=== PATIENT | male | born 1940 | race Caucasian/White ===

== ENCOUNTER 2019-03-17 06:42 | Observation (INO) ==
--- NOTE | 2019-03-16 14:33 | XRay Report ---
TWO VIEW CHEST CLINICAL HISTORY: Preoperative examination.. FINDINGS: PA and lateral chest radiographs are obtained. No prior studies are available for compariso n at the time of dictation. The cardiomediastinal silhouette is unremarkable. There is atherosclero tic calcification with uncoiling of the thoracic aorta. Emphysematous change is noted. No airspace co nsolidation or pleural effusion is identified. There is no pneumothorax. The skeletal structures are osteopenic. The bony thorax appears intact. IMPRESSION: Emphysematous change with no active disease in the chest. Electronically signed by: Daniel Sanford M.D. 03/16/2019 2:32 PM
[2019-03-16 14:46] LABS: Partial Thromboplastin Time 27.1 Seconds (21.0-31.0); Prothrombin Time 10.3 Seconds (9.0-12.0)
--- NOTE | 2019-03-16 14:55 | Anesthesiology Consultation ---
Date of Service March 16, 2019 Assessment & Plan (1) Encounter for pre-operative examination: Chart Review Chart Review: Acceptable Risk for Surgery and Patient NOT seen in Pre Admission Testing Consults Requested none History Surgery Operation Date: 03/17/19 08:20 Proposed Procedures p Transurethral Resection of Bladder Tumor, Possible Multiple Cup Biopseis of Bladder, Possible Mitomycin C - Felix Tomlinson MD Height/Weight Height: 5 ft 10.5 in Weight: 76.204 kg Allergies Allergy/AdvReac Type Severity Reaction Status Date / Time aspirin AdvReac Unknown History-Ulc Verified 03/16/19 14:48 ers Medications Home Medications Medication Instructions Recorded Confirmed Last Taken No Known Home Medications 03/15/19 03/16/19 Unknown Past Medical History Medical History Emphysema lung Hx of gastric ulcer Past Family History Family History Other Family history non-contributory Past Surgical History Surgical History No history of previous surgery Social History Smoking Status: Current every day smoker tobacco type: cigarettes Smoking cigarettes per day: 1/2ppd Do You Dip or Chew Tobacco: No Hx Alcohol Use: No Hx Substance Use: No substance use type: does not use Testing Laboratory Results PT 10.3 Seconds (9.0-12.0) 03/17/19 08:20 INR 1.0 (0.9-1.1) 03/17/19 08:20 APTT 27.1 Seconds (21.0-31.0) 03/17/19 08:20 Laboratory Tests 03/15/19 03/15/19 21:01 21:01 WBC 8.95 Hgb 14.1 Plt Count 220 Sodium 138 Potassium 3.5 Chloride 102 Carbon Dioxide 29 BUN 15 Creatinine 1.10 Glucose 95 Electrocardiogram Date: 03/16/19 Normal sinus rhythm, rate 84 bpm Right bundle branch block Abnormal ECG No previous ECGs available Chest X-Ray Date: 03/16/19 IMPRESSION: Emphysematous change with no active disease in the chest.
[2019-03-16 15:05] LABS: Prostate Specific Antigen 3.35 ng/ml (0-4)
[~2019-03-17 06:42] MED LIST: GENTAMICIN SULFATE 80 MG in DEXTROSE 5% 100 ML IV SCH; LR 15ML/HR IV SCH
[2019-03-17 07:27] LABS: Hematocrit (blood only) 39.6 % (42-52); Hemoglobin 12.9 g/dL (14.0-18.0)
[2019-03-17] MEDS ORDERED: PROPOFOL IV EMULSION 10 MG/ML 20 ML VIAL IV ONE (08:02)
[2019-03-17] MEDS ORDERED: NEOSTIGMINE METHYLSULFATE 5 MG/5 ML SYR ONE (08:02)
[2019-03-17] MEDS ORDERED: GLYCOPYRROLATE 0.2 MG/ML VIAL ONE (08:02)
[2019-03-17] MEDS ORDERED: ONDANSETRON INJ 2 MG/ML 2 ML VIAL ONE (08:02)
[2019-03-17] MEDS ORDERED: LIDOCAINE HCL 2% 2 ML VIAL/AMP(20MG/ML) INFIL ONE (08:02)
[2019-03-17] MEDS ORDERED: fentaNYL citrate 100 MCG/2 ML VIAL ONE ×3 (08:02→11:28)
[2019-03-17] MEDS ORDERED: ROCURONIUM BROMIDE 10 MG/ML 5 ML VIAL ONE ×5 (08:02→12:09)
--- NOTE | 2019-03-17 08:06 | History & Physical Bridge Note ---
Date of Service March 17, 2019 History and physical incorrectly says jaqui is to have a TURP . He is having a TURBT. History & Physical Bridge Note I have examined the patient, reviewed the History & Physical and in the interval since the performance of the History & Physical I have noted the following changes of clinical significance: no changes noted
[2019-03-17] MEDS ORDERED: ePHEDrine sulfate 50 MG/ML AMP IV PRN (08:46)
[2019-03-17] MEDS ORDERED: ONDANSETRON INJ 2 MG/ML 2 ML VIAL IV PRN ×2 (08:46→13:54)
[2019-03-17] MEDS ORDERED: ALBUTEROL 0.083% NEBU SOLN 3 ML VIAL INH PRN (08:46)
[2019-03-17] MEDS ORDERED: ATROPINE SULFATE 0.1 MG/ML 10ML SYR IV PRN (08:46)
[2019-03-17] MEDS ORDERED: fentaNYL citrate 100 MCG/2 ML VIAL IV PRN (08:46)
[2019-03-17] MEDS ORDERED: METHYLENE BLUE 0.5% 10 ML VIAL ONE (09:50)
[2019-03-17] MEDS ORDERED: SODIUM CHLORIDE 0.9% 250 ML IV PRN (11:18)
[2019-03-17 11:31] LABS: iSTAT Hemoglobin 12.2 g/dl (14.0-18.0); iSTAT Ionized Calcium 1.18 mmol/l (1.12-1.32); iSTAT Potassium 4.3 mEq/L (3.3-5.0)
[2019-03-17] MEDS ORDERED: LABETALOL HCL IV 5 MG/ML 20ML IV ONE ×2 (12:00→12:58)
[2019-03-17 12:57] LABS: Basophils # (auto) 0.02 K/uL (0-0.2); Basophils % (auto) 0.3 %; Eosinophils # (auto) 0.17 K/uL (0-0.5); Eosinophils % (auto) 2.8 %; Hematocrit (blood only) 38.8 % (42-52); Hemoglobin 12.4 g/dL (14.0-18.0); Immature Granulocytes # (auto) 0.01 K/uL (0.00-0.02); Immature Granulocytes % (auto) 0.2 %; Lymphocytes # (auto) 2.03 K/uL (1.2-3.4); Lymphocytes % (auto) 33.4 %; Mean Corpuscular Volume 87.2 fL (80-100); Mean Platelet Volume 10.2 fL (7.4-10.4); Monocytes # (auto) 0.49 K/uL (0.11-0.59); Monocytes % (auto) 8.1 %; Neutrophils # (auto) 3.36 K/uL (1.4-6.5); Neutrophils % (auto) 55.2 %; Platelet Count 163 K/uL (130-400); RDW Coefficient of Variation 14.4 % (11.5-14.5); RDW Standard Deviation 45.8 fL (36.4-46.3); Red Blood Count 4.45 M/uL (4.7-6.1); White Blood Count 6.08 K/uL (4.8-10.8)
[2019-03-17] MEDS: LABETALOL HCL IV 5 MG/ML 20ML IV PRN ×2 (12:59→13:15)
[2019-03-17 13:16] LABS: BUN Creatinine Ratio 10.7 (10-20); Calcium 7.9 mg/dl (8.5-10.1); Creatinine Clr Calc Pharmacy 55.3 ml/min; Est GFR (African American) 72.8; Est GFR (Non-African American) 62.8; Potassium 4.2 mmol/L (3.5-5.1)
--- NOTE | 2019-03-17 13:26 | XRay Report ---
XR chest 1V portable CLINICAL HISTORY: SOB in PACU, sp TURB dyspnea COMPARISON STUDY: 03/16/2019 FINDINGS: Lungs remain clear. Minimal stable cardiomegaly. Stable tortuosity thoracic aorta. IMPRESSION: No acute process. No change from the prior exam. The above report was generated using voice recognition software. It may contain grammatical, syntax or spelling errors. Electronically signed by: Brent Wood M.D. 03/17/2019 1:25 PM
--- NOTE | 2019-03-17 13:32 | Anesthesiology Progress Note ---
Date of Service March 17, 2019 Anesthesia Post Procedure Vital Signs Vital Signs: Temp Pulse Pulse Resp BP Pulse Ox 03/17/19 13:20 52 L 16 145/71 H 99 03/17/19 13:10 55 L 14 167/78 H 96 03/17/19 13:00 61 18 158/65 H 99 03/17/19 12:50 64 12 201/99 H 97 03/17/19 12:40 72 10 L 188/86 H 100 03/17/19 12:33 37.1 C 62 13 121/61 99 03/17/19 07:05 36.6 C 74 18 161/79 H 97 Transfer of Care Handoff Completed per policy Notes Mental Status: alert / awake / arousable and participated in evaluation Patient Amnestic to Procedure: Yes Nausea / Vomiting: adequately controlled Pain: adequately controlled Airway Patency, RR, SpO2: stable & adequate BP & HR: stable & adequate Hydration State: stable & adequate Anesthetic Complications: no major complications apparent and Pt Satisfied with anesthetic care Notes: Pt c/o "congestion" in PACU. Some crackles at lung bases. CXR ordered and reviewed. Unchanged from prior. Post op electrolytes reviewed and normal. Hgb appropriate. Ok to send to floor.
[2019-03-17] MEDS ORDERED: BELLADONNA/OPIUM SUPP 60 MG SUPP PR PRN (13:54)
[2019-03-17] MEDS ORDERED: OXYCODONE HCL IR 5 MG TAB (IMMEDIATE RELEASE) PO PRN ×2 (13:54)
[2019-03-17] MEDS ORDERED: MoRPHine SULFATE 10 MG/ML CARP/VIAL IV PRN (13:54)
[2019-03-17] MEDS ORDERED: PNEUMOCOCCAL ADMINISTRATION CHARGE ONE (15:00)
[2019-03-17] MEDS ORDERED: PNEUMOCOCCAL POLYSACCHARIDES 25 MCG/0.5 ML VIAL/SYR IM ONE (15:00)
[2019-03-17] MEDS: FAMOTIDINE 20 MG in SYRINGE 3 ML IV SCH (15:46)
[2019-03-17] MEDS: ACETAMINOPHEN 1,000 MG/100 ML VIAL IV SCH ×2 (15:51→22:24)
[2019-03-17] MEDS: SODIUM CHLORIDE 0.45 % 1,000 ML IV SCH (16:08)
[2019-03-17] MEDS: CIPROFLOXACIN 400 MG/200 ML BAG IV SCH (17:11)
[2019-03-17] MEDS: DOCUSATE SODIUM 100 MG CAP PO SCH (22:23)
--- NOTE | 2019-03-17 23:50 | Operative Report ---
DATE OF OPERATION: 03/17/2019 DATE OF PROCEDURE: 03/17/2019 PREOPERATIVE DIAGNOSIS: Large bladder tumor with gross hematuria. POSTOPERATIVE DIAGNOSIS: Large bladder tumor with gross hematuria. SURGEON: Felix Tomlinson MD RAZOR GRINDER: Carlo. PROCEDURE: TURBT of large bladder tumor with multiple smaller bladder tumors. ANESTHESIA: General. INDICATIONS: The patient is a 78-year-old male with a [id number] history of smoking who presented several days ago for gross hematuria, had a Betts catheter placed in the Emergency Room which was clotted off. Yesterday he called the office, I had him come in and irrigated his bladder. We did a CAT scan which showed a large bladder tumor and given his persistent hematuria, scheduled him for a TURBT. DESCRIPTION OF THE PROCEDURE: The patient was taken to the cystoscopy suite with Venodyne stockings. He was given preoperative antibiotics. He was placed in dorsal lithotomy position, prepped and draped in the usual sterile fashion. A 21-Prydeinig cystoscope with a resectoscope was passed per urethra and the bladder was irrigated multiple times, most of the clot seemed to be removed. A large tumor appeared to be in the center of the field emanating from the trigone with multiple smaller tumors initially seen, but not appreciated, ____ until later in the procedure. Initially, the resection of this large tumor was begun and after several hours, there was a significant amount of bleeding in the middle of the tumor which was difficult to control, eventually it was able to control. Dr. Matos came to assist. By this time, most of the tumor been resected and the bleeding had been relatively well controlled. The rest of the tumor was resected and several biopsies at the deep part of the tumor were resected. At this point, I was able to identify both ureteral orifices, had given methylene blue but did not see blue coming from either orifice, although it did not appear that the orifice had been affected by the resection. There were at least 15-20 smaller tumors that appeared superficial that were resected and cauterized. Three of them were at the bladder neck and there was a moderate amount of bleeding when these were resected from the bladder neck. At the end of the procedure, there was no evidence of any bleeding. There was one area in the middle of the larger tumor that was relatively deep. It did not appear to be perforated. Careful coagulation was achieved. A 22-Prydeinig Betts catheter 2-way was placed, again the urine was clear. The patient was transferred to the recovery room in stable condition. I attest to the content of the Intraoperative Record and any orders documented therein. Any exception s are noted below.
[2019-03-18] MEDS: FAMOTIDINE 20 MG in SYRINGE 3 ML IV SCH (03:04)
[2019-03-18] MEDS: CIPROFLOXACIN 400 MG/200 ML BAG IV SCH (03:04)
[2019-03-18] MEDS: SODIUM CHLORIDE 0.45 % 1,000 ML IV SCH (05:17)
[2019-03-18] MEDS: ACETAMINOPHEN 1,000 MG/100 ML VIAL IV SCH (05:20)
--- NOTE | 2019-03-18 07:34 | Anesthesiology Progress Note ---
Date of Service March 18, 2019 Anesthesia Post Procedure Vital Signs Vital Signs: Temp Pulse Pulse Resp BP Pulse Ox 03/18/19 03:20 37 C 78 18 111/64 95 03/17/19 22:52 36.9 C 63 18 108/53 L 95 03/17/19 20:01 94 03/17/19 19:10 37.2 C 73 18 107/56 L 95 03/17/19 16:54 37.0 C 69 16 100/48 L 100 03/17/19 15:49 36.9 C 66 16 158/68 H 99 03/17/19 14:56 36.5 C 61 16 150/58 H 98 03/17/19 14:19 59 L 16 154/72 H 96 03/17/19 13:55 36.5 C 55 L 17 158/71 H 97 03/17/19 13:40 36.4 C L 53 L 17 162/71 H 97 03/17/19 13:30 52 L 16 145/71 H 99 03/17/19 13:20 52 L 16 145/71 H 99 03/17/19 13:10 55 L 14 167/78 H 96 03/17/19 13:00 61 18 158/65 H 99 03/17/19 12:50 64 12 201/99 H 97 03/17/19 12:40 72 10 L 188/86 H 100 03/17/19 12:33 37.1 C 62 13 121/61 99 Notes Mental Status: alert / awake / arousable and participated in evaluation Patient Amnestic to Procedure: Yes Nausea / Vomiting: adequately controlled Pain: adequately controlled Airway Patency, RR, SpO2: stable & adequate BP & HR: stable & adequate Hydration State: stable & adequate Anesthetic Complications: no major complications apparent and Pt Satisfied with anesthetic care
[2019-03-18 08:14] LABS: Basophils # (auto) 0.04 K/uL (0-0.2); Basophils % (auto) 0.4 %; Eosinophils # (auto) 0.15 K/uL (0-0.5); Eosinophils % (auto) 1.7 %; Hematocrit (blood only) 37.9 % (42-52); Immature Granulocytes # (auto) 0.01 K/uL (0.00-0.02); Immature Granulocytes % (auto) 0.1 %; Lymphocytes # (auto) 1.55 K/uL (1.2-3.4); Lymphocytes % (auto) 17.1 %; Mean Corpuscular Hgb Conc 31.7 g/dL (32-36); Mean Corpuscular Volume 87.5 fL (80-100); Mean Platelet Volume 10.1 fL (7.4-10.4); Monocytes # (auto) 0.59 K/uL (0.11-0.59); Monocytes % (auto) 6.5 %; Neutrophils # (auto) 6.72 K/uL (1.4-6.5); Neutrophils % (auto) 74.2 %; Platelet Count 181 K/uL (130-400); RDW Coefficient of Variation 14.4 % (11.5-14.5); RDW Standard Deviation 46.1 fL (36.4-46.3); Red Blood Count 4.33 M/uL (4.7-6.1); White Blood Count 9.06 K/uL (4.8-10.8)
[2019-03-18 08:37] LABS: BUN Creatinine Ratio 10.9 (10-20); Calcium 8.3 mg/dl (8.5-10.1); Creatinine Clr Calc Pharmacy 49.9 ml/min; Est GFR (African American) 64.3; Est GFR (Non-African American) 55.5; Potassium 4.2 mmol/L (3.5-5.1)
[2019-03-18] MEDS: DOCUSATE SODIUM 100 MG CAP PO SCH (09:14)
--- NOTE | 2019-03-18 09:49 | Urology Progress Note ---
Date of Service March 18, 2019 Assessment & Plan (1) Bladder mass: Discharge the patient home with an indwelling Betts catheter. Patient will follow-up in 2 days Subjective 78-year-old male status post TURBT yesterday. Intra-Op patient bled a moderate amount but his hematocrit is 37.9 today. The urine is clear. The patient has no pain and is feeling ready to go home. Discussed with him the fact that he can have his catheter in until Saturday. If the bleeding becomes severe he needs to let us know. Physical Exam Physical Exam: Urine is clear in Betts patient appears alert without distress Results & Data Vital Signs (Past 12 Hours) Vital Signs Temp Pulse Pulse Resp BP Pulse Ox 03/18/19 07:49 36.8 C 63 17 150/70 H 98 03/18/19 03:20 37 C 78 18 111/64 95 03/17/19 22:52 36.9 C 63 18 108/53 L 95 Laboratory Results Hematocrit is 37.9 this point PG Care Time/CCT Total # of Minutes Spent Total Time Spent with Patient: Total time spent is greater than 50% in coordination of care (as documented) at patient's floor/unit and/or counseling patient:
--- NOTE | 2019-03-19 22:58 | Discharge Summary ---
HISTORY OF PRESENTATION AND HOSPITAL COURSE: The patient was admitted on 11/15/2018 with a large bladder tumor with gross hematuria and urinary retention. The patient had a TURBT, which was difficult, but did result in complete resection of his tumors, which he had multiple and one large predominant tumor. Postoperatively, his urine was clear. He had a Betts catheter in overnight and felt well the next day with relatively clear urine. He was discharged to home with an indwelling Betts catheter and instructions to follow up in 3 days for catheter removal.
--- NOTE | 2019-03-30 11:16 | Coding Query ---
A supporting diagnosis is required for the test/procedure performed on this patient in order for us to be reimbursed by the patient's insurance. Please provide a supporting diagnosis for the following test/procedure listed below next to the test name along with your signature. *If there is no additional diagnosis for this patient that would support the following test/procedure please document that below next to the test/procedure. Test(s)/Procedure(s) that require a supporting diagnosis: * FREE PSA (INCLUDES TOTAL PSA) DIAGNOSIS: Provider Signature: Date: Thank you Delphine Capone [employer] Information [employer] Once completed, please kindly fax back to [phone] For questions please call [phone] [facility]ITAL[facility]
== END 2019-03-18 11:40 | disposition home or self-care (01) ==
LOC: 3W 06:42 → ASU 06:42

== ENCOUNTER 2025-03-08 08:10 | Observation (INO) ==
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
[2025-03-08] MEDS ORDERED: DEXAMETHASONE SOD INJ 4 MG/ML VIAL ONE (08:13)
[2025-03-08] MEDS ORDERED: ONDANSETRON INJ 2 MG/ML 2 ML VIAL ONE (08:13)
[2025-03-08] MEDS ORDERED: ROCURONIUM BROMIDE 10 MG/ML 5 ML VIAL IV ONE ×2 (08:13→11:04)
[2025-03-08] MEDS ORDERED: PROPOFOL IV EMULSION 10 MG/ML 20 ML VIAL IV ONE (08:13)
[2025-03-08] MEDS ORDERED: LIDOCAINE 2% 2 ML VIAL/AMP(20MG/ML) INFIL ONE (08:13)
[2025-03-08] MEDS ORDERED: SUGAMMADEX SODIUM 200 MG/2 ML VIAL IV ONE (08:28)
--- NOTE | 2025-03-08 08:33 | History & Physical Bridge Note ---
Date of Service March 08, 2025 History & Physical Bridge Note I have examined the patient, reviewed the History & Physical and in the interval since the performance of the History & Physical I have noted the following changes of clinical significance: he had his bladder cancer surgery performed, his blood pressures became better controlled with his PCP while he awaited surgery today. Pt presents for robotic right inguinal hernia repair, possible open. The details of the procedure were explained in the office as noted in the office note and the consent is on the chart.
[2025-03-08 08:40] LABS: Anion Gap 7.0 (3-11); Blood Urea Nitrogen 24.0 mg/dl (6-23); Calcium 9.0 mg/dl (8.6-10.3); Carbon Dioxide 27.0 mmol/L (21-32); Chloride 108.0 mmol/L (98-107); Creatinine Clr Calc Pharmacy 42.5 ml/min; Glucose 96.0 mg/dl (70-99(Fasting)); Potassium 3.9 mmol/L (3.5-5.1); Sodium 142.0 mmol/L (136-145)
[2025-03-08] MEDS ORDERED: ATROPINE SULFATE 0.1 MG/ML 10ML SYR IV PRN (08:57)
[2025-03-08] MEDS ORDERED: PROMETHAZINE HCL 6.25 MG in SODIUM CHLORIDE 0.9% 50 ML IV PRN (08:57)
[2025-03-08] MEDS ORDERED: HYDROmorphone INJ 2 MG/ML SYR/VIAL IV PRN (08:57)
[2025-03-08] MEDS: LACTATED RINGER'S 1,000 ML IV SCH (09:06)
[2025-03-08] MEDS ORDERED: PHENYLEPHRINE 100MCG/ML 5ML SYR ONE (11:26)
[2025-03-08] MEDS: BUPIVACAINE 0.5 % 5 MG/1 ML MPF 30ML VIAL ONE (12:20)
--- NOTE | 2025-03-08 12:35 | Operative Report ---
PG Post Operative Report Pre & Post Diagnosis Operation Date: 03/08/25 09:50 Pre-Op Diagnosis: Bilateral Inguinal Hernia Post-Op Diagnosis: Bilateral Inguinal Hernia I identified the patient and participated in the time-out.: Yes Procedure Operation Date: 03/08/25 09:50 Actual Procedures p Robotic Assisted Laparoscopic Bilateral Inguinal Hernia Repair with M esh(Bilateral) - Timothy Willson DO Surgeon Timothy Willson DO Chemical Dependency Attendant NOEL Villalobos Estimated Blood Loss 10 Findings See Below Bilateral inguinal hernias Right direct, indirect and obturator hernias Left direct, indirect inguinal hernias Specimens None Anesthesia Type General Complications No immediate complications Indications Patient with symptomatic bilateral inguinal hernias. Right much more symptomatic than the left. Description of Procedure The patient was brought back to the operating room and placed on the operating room table in supine position. He was connected to cardiac and oxygen monitoring, supplemental O2 was provided and SCDs were applied to bilateral lower extremities. The patient was administered general anesthesia and a secure airway was established. The abdomen was prepped and draped in typical sterile fashion and a timeout was conducted. Local anesthetic was used anesthetize the skin and subcutaneous tissues prior to making all incisions and all incisions were made with 11 blade. Intra-abdominal access was attempted at the right upper quadrant as the patient does have a palpable aortic aneurysm being followed by his vascular surgeon and care was taken to avoid this during intra-abdominal access. Right upper quadrant intra- abdominal access was unsuccessful so access was gained at the supraumbilical fold to the patient's right of his midline. This was confirmed with saline drop test. CO2 insufflation was initiated and pneumoperitoneum was established local pressure 15 mmHg. Using direct visualization, an 8 mm robotic trocar was inserted with a 5 mm laparoscope and an Optiview port. Under direct visualization, 2 additional 8 mm trocars were inserted at the right upper and left upper quadrants. The OR table was positioned in Trendelenburg and the robot was deployed, docked and instruments were loaded in target. Immediately obvious was a large direct and the slightly smaller indirect inguinal hernia. At the console, the peritoneum was taken down initially just over the right groin creating the preperitoneal space extending laterally to the ASIS. A large direct hernia was reduced of the lipoma. As the peritoneum was peeled away from the myopectineal orifice, an obturator hernia and an indirect hernia were both reduced. The peritoneum was pulled away from this area to a great extent. The left side was then addressed in the opening into the peritoneum was continued to the the left ASIS. The preperitoneal space here was also fully developed and an indirect and direct hernia was reduced on the left. There was a small tear in the lower edge of the peritoneum this was closed using a [id number] 3-0 Vicryl suture on the preperitoneal space side. 10 x 15 ProGrip mesh was used at both the right groin and the left. Each mesh was sutured in place at the top edge medially to secure above the direct hernia spaces. Each mesh was splayed out over the entire myopectineal orifice extending to below the Helio's ligament medially and laterally to the ASIS bilaterally. The peritoneum was reduced beyond the lower edge of the mesh. The peritoneum was then closed over both areas using two 9 inch V lock sutures. The sutures and needles were all removed. The instruments and trocars were removed. The OR was returned to the neutral position. The skin incisions were approximated using 4-0 Monocryl suture. The abdomen was wiped clean with a saline soaked lap pad and dried. Dermabond was used to further seal the incisions. The patient tolerated the procedure well. He was awakened from anesthesia, the secure airway was removed and he was transferred recovery in stable condition. I attest to the content of the Intraoperative Record and any orders documented therein. Any exceptions are noted below.
[2025-03-08] MEDS ORDERED: MoRPHine SULFATE 2 MG/ML CARP IV PRN ×2 (13:38)
[2025-03-08] MEDS ORDERED: ACETAMINOPHEN 325 MG TAB PO PRN (13:38)
[2025-03-08] MEDS ORDERED: ONDANSETRON INJ 2 MG/ML 2 ML VIAL IV PRN (13:38)
--- NOTE | 2025-03-08 14:25 | Anesthesiology Progress Note ---
Date of Service March 08, 2025 Anesthesia Post Procedure Vital Signs Vital Signs: Temp Pulse Pulse Resp BP Pulse Ox O2 Del Method 03/08/25 14:05 36.3 C L 90 18 159/74 H 97 Room Air 03/08/25 13:41 36.4 C L 84 18 130/66 96 Room Air 03/08/25 13:15 36.5 C 88 20 137/66 94 Room Air 03/08/25 13:05 92 H 14 128/65 93 Room Air 03/08/25 12:55 92 H 16 146/55 H 95 Room Air 03/08/25 12:45 91 H 16 141/65 H 96 Oxymask 03/08/25 12:36 36.5 C 100 H 12 141/63 H 99 Room Air 03/08/25 08:36 36.7 C 79 18 155/86 H 94 Room Air O2 Flow Rate 03/08/25 14:05 03/08/25 13:41 03/08/25 13:15 03/08/25 13:05 03/08/25 12:55 03/08/25 12:45 4 03/08/25 12:36 03/08/25 08:36 Pain Intensity Bilateral Leg: Pain Intensity: 2 Abdomen: Pain Intensity: 4 Transfer of Care Handoff Completed per policy Notes Mental Status: alert / awake / arousable and participated in evaluation Nausea / Vomiting: adequately controlled Pain: adequately controlled Airway Patency, RR, SpO2: stable & adequate BP & HR: stable & adequate Hydration State: stable & adequate Anesthetic Complications: no major complications apparent and Pt Satisfied with anesthetic care
[2025-03-08 23:40] VITALS: TEMP 97.9
[2025-03-09 07:01] VITALS: BP 114/59; PULSE 75; RESP 16; O2SAT 96
[2025-03-09] MEDS: LOSARTAN POTASSIUM 50 MG TAB PO SCH (07:21)
--- NOTE | 2025-03-09 09:41 | Surgery Progress Note ---
<Statement entered by Timothy Willson, DO - 03/09/25 14:19> This case has been discussed with the surgical PA Date of Service March 09, 2025 Assessment & Plan (1) Inguinal hernia bilateral, non-recurrent: Plan: POD#1 robotic bilateral inguinal hernia repair with dr. willson doing well post op. pain controlled, diet tolerated, he is voiding and ambulating incisions c/d/i will plan on discharge to home today, d/c instructions reviewed, f/u in the office with dr. willson in 10-14 days Admission and Anticipated Discharge Date Admission Date: March 08, 2025 Subjective Patient feeling okay. Pain tolerable. Eating/drinking well without nausea/vomiting. Voiding and ambulating. Physical Exam Physical Exam: awake/alert, no distress Gastrointestinal (Abdomen): Inspection/Auscultation: + abdominal surgical incision (c/d/i with dermabond ) Percussion/Palpation: + abdomen tender (expected trini incisional discomfort to palpation ) and abdomen soft Results & Data Vital Signs (Past 12 Hours) Vital Signs Temp Pulse Resp BP BP Pulse Ox O2 Del Method 03/09/25 07:01 97.9 F 75 16 114/59 L 96 Room Air 03/09/25 03:14 97.9 F 71 18 127/62 97 Room Air 03/08/25 23:38 97.9 F 74 18 126/57 L 97 Room Air PG Care Time/CCT Total # of Minutes Spent Total Time Spent with Patient: Total time spent is greater than 50% in coordination of care (as documented) at patient's floor/unit and/or counseling patient: Coding Level of Care Code 80020 Post Operative Follow-Up Diagnoses Non-recurrent bilateral inguinal hernia without obstruction or gangrene K40.20 Obstruction and gangrene presence: without obstruction or gangrene Recurrence: non-recurrent (1) Inguinal hernia bilateral, non-recurrent Obstruction and gangrene presence: without obstruction or gangrene Recurrence: non-recurrent Qualified Code(s): K40.20 - Bilateral inguinal hernia, without obstruction or gangrene, not specified as recurrent
== END 2025-03-09 10:45 | disposition home or self-care (01) ==
LOC: 3W 08:10 → ASU 08:10

== ENCOUNTER 2025-05-23 17:59 | Inpatient (IN) ==
[2025-05-23 18:32] LABS: Hematocrit (blood only) 35.2 % (42.0-52.0); Hemoglobin 11.3 g/dl (14.0-18.0); Immature Granulocytes # (auto) 0.04 K/uL (0.01-0.20); Immature Granulocytes % (auto) 0.5 %; Mean Corpuscular Hemoglobin 28.0 pg (25.0-34.0); Mean Corpuscular Volume 87.1 fL (80.0-100.0); Platelet Count 241 K/uL (130-400); RDW Standard Deviation 41.8 fL (36.4-46.3); Red Blood Count 4.04 M/uL (4.70-6.10); White Blood Count 8.19 K/ul (4.8-10.8)
--- NOTE | 2025-05-23 18:32 | XRay Report ---
Chest radiograph, one view History: Chest pain Comparison: None Findings: Single AP view of the chest performed. No focal consolidation or pleural effusion. No pneumothorax. The cardiomediastinal silhouette is within normal limits. Normal pulmonary vascularity. No evidence for lymphadenopathy. No visualized bony or soft tissue abnormality. Impression: Normal chest radiograph Electronically signed by Bharathi Rivera 05-23-2025 6:31 PM
[2025-05-23 18:48] LABS: Anion Gap 9.0 (3-11); Blood Urea Nitrogen 22.0 mg/dl (6-23); Calcium 8.6 mg/dl (8.6-10.3); Carbon Dioxide 24.0 mmol/L (21-32); Chloride 106.0 mmol/L (98-107); Creatinine Clr Calc Pharmacy 39.0 ml/min; Glucose 106.0 mg/dl (70-99(Fasting)); Lipase 14.0 U/L (11-82); Potassium 3.5 mmol/L (3.5-5.1); Sodium 139.0 mmol/L (136-145)
[2025-05-23 19:05] LABS: INR 1.0 (0.9-1.1); Partial Thromboplastin Time 26 Seconds (21-31); Prothrombin Time 10.6 Seconds (9.0-12.0)
[2025-05-23] MEDS: ASPIRIN 81 MG CHEW PO STA (19:36)
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
--- NOTE | 2025-05-23 21:09 | Emergency Department Note ---
History of Present Illness General Chief Complaint: Chest Pain Stated Complaint: CHEST PAIN Time Seen by Provider: 05/23/25 18:06 History of Present Illness Provider Complaint: chest pain Onset (ago): day(s) 1 Duration: intermittent Onset: during rest Pain Location: left chest Pain Radiation: none Severity: moderate Maximum Pain Intensity: 5 Current Pain Intensity: 5 Quality: + tightness and + aching Relieved By: + nothing Exacerbated By: + nothing Context: no recent illness, no recent surgery, no recent immobilization, no recent travel, no trauma/injury or no new medications Associated symptoms: no nausea, no dyspnea, no syncope, no palpitations, no fever, no cough or no leg swelling Patient scheduled to have stress test tomorrow through the MD. Home Medications Medication Instructions Recorded Confirmed Type amlodipine 10 mg tablet 5 mg PO QAM 01/14/25 05/23/25 History losartan 50 mg tablet 50 mg PO QAM 01/14/25 05/23/25 History lidocaine 5 % topical patch 1 patch topical DAILY #30 ea 04/05/25 05/23/25 Rx (Lidoderm) peg 3350-electrolytes 236 240 ml PO Q10M #4,000 mL 04/15/25 Rx gram-22.74 gram-6.74 gram-5.86 gram solution (GaviLyte-G) metoprolol succinate 25 mg 25 mg PO DAILY 05/23/25 05/23/25 History tablet,extended release 24 hr omeprazole 20 mg capsule,delayed 20 mg PO DAILY 05/23/25 05/23/25 History release Allergies Allergy/AdvReac Type Severity Reaction Status Date / Time Sulfa (Sulfonamide Allergy rash Verified 04/14/25 13:34 Antibiotics) sulfamethoxazole Allergy Rash Verified 04/14/25 13:34 [From Bactrim] trimethoprim [From Bactrim] Allergy Rash Verified 04/14/25 13:34 aspirin AdvReac Mild History-Ulc Verified 04/14/25 13:34 ers diphenhydramine AdvReac bleeding Verified 04/14/25 13:34 [From Benadryl] with urination Past Med/Surg History Problem List (Updated 05/23/25 @ 21:13 by Phil Wolfe MD) Chest pain (Acute) Early satiety Abdominal pain BPH (benign prostatic hyperplasia) Inguinal hernia bilateral, non-recurrent Malignant neoplasm of bladder HTN (hypertension) Bilateral knee pain Dawson's cyst of knee Tobacco use Overweight (BMI 25.0-29.9) Hx of gastric ulcer Emphysema lung Medical History Encounter for pre-operative examination BPH (benign prostatic hyperplasia) Hx of bladder cancer (1998) AAA (abdominal aortic aneurysm) Torn ligament PAD (peripheral artery disease) Hx of gastric ulcer HTN (hypertension) Emphysema lung Inguinal hernia bilateral, non-recurrent Surgical History H/O bilateral inguinal hernia repair (03/08/25) History of transurethral resection of bladder tumor (TURBT) (2024) History of surgery on arm Hx of LASIK Family History Sister Family history of diabetes mellitus (DM) Hypertension Breast cancer Diabetes Father Cancer Brother Myocardial infarction Gall bladder disease Other Family history of cancer in father Denies family history of Ovarian cancer Prostate cancer Colorectal cancer Social History Smoking Status: Former smoker Tobacco Type: Cigarettes Age Started Using Tobacco: 19; packs per day: 1; Cigarettes Per Day: 2 1/5 mos- advised; Second Hand Exposure: No; Do You Dip or Chew Tobacco: No; Hx Alcohol Use: No Hx Substance Use: No Preferred Language: Amharic Communication Ability: Effective Visual Impairment: No Limitations Hearing Ability: Normal Retail And Promotions Coordinator Required: No Beliefs That Will Affect Care: None marital status: Current Living Situation: Alone current occupational status: retired How many Children do You have: 3 Feels Safe at Home: Yes during the past year weight has: remained stable Dental Care, Regularly: No Physical Activity Frequency: Other Physical Activity Frequency Comment: Limited by physical condition Seatbelt Use: always Sunscreen Use: Yes (sometimes) Assistive Devices: Cane Physical Exam Vital Signs Vital Signs - 24 hr 05/23/25 18:01 05/23/25 18:20 05/23/25 18:21 Temperature 36.6 C Temperature Source Temporal Artery Scan Pulse Rate 83 67 Pulse Rate [Left Apical] 70 Respiratory Rate 20 17 Respiratory Effort / Characteristics Non-Labored Spontaneous Respiratory Depth Normal Respiratory Pattern Regular Blood Pressure 108/69 Blood Pressure [Right Arm] 123/90 Blood Pressure Mean 82 Blood Pressure Mean [Right Arm] 101 Blood Pressure Position Sitting Pulse Oximetry 99 95 Oxygen Delivery Method Room Air Room Air Sepsis Recent Fever Within 48 Hours No Sepsis New/Unexplained Change in Mental Status No Sepsis Action Taken by Nursing No Action Required 05/23/25 19:00 05/23/25 19:30 05/23/25 20:02 Temperature Temperature Source Pulse Rate 70 70 64 Pulse Rate [Left Apical] Respiratory Rate 19 17 19 Respiratory Effort / Characteristics Respiratory Depth Respiratory Pattern Blood Pressure 109/51 L 119/71 142/66 H Blood Pressure [Right Arm] Blood Pressure Mean 77 96 125 Blood Pressure Mean [Right Arm] Blood Pressure Position Pulse Oximetry 98 100 100 Oxygen Delivery Method Room Air Room Air Room Air Sepsis Recent Fever Within 48 Hours Sepsis New/Unexplained Change in Mental Status Sepsis Action Taken by Nursing Physical Exam GENERAL: oriented to person, place, and time. appears well-developed and well- nourished. HENT: Exam performed. - Head: Normocephalic and atraumatic. EYES: Conjunctivae and EOM are normal. Right eye exhibits no discharge. Left eye exhibits no discharge. No scleral icterus. NECK: Normal range of motion. Neck supple. No JVD present. CV: Normal rate, regular rhythm, normal heart sounds and intact distal pulses. There is no peripheral edema. Palpable radial pulses bue. PULM/CHEST: Effort normal and breath sounds normal. No respiratory distress. No stridor. no wheezes. no rales. ABD: The abdomen is soft. There is no tenderness. NEURO: Motor and sensation grossly intact. SKIN: Skin is warm and dry. He is not diaphoretic. PSYCH: normal mood and affect. Behavior is normal. Judgment and thought content normal. Course Course 1805: The patient was evaluated in room C5. A complete history and physical exam was performed Cardiac monitoring: An order was placed for continuous cardiac monitoring. The monitor shows a rate of 70 with sinus rhythm interpreted by me 1930: Vital signs stable. Labs and imaging are unremarkable. Patient will be admitted for chest pain rule out ACS. Administered Medications Discontinued Medications Aspirin (Aspirin 81 Mg Chew) 324 mg PO NOW STA Stop: 05/23/25 19:31 Last Admin: 05/23/25 19:36 Dose: 324 mg Documented By: [facility] Medical Decision Making Laboratory Data Attestation: I reviewed the patient's lab results. 05/23/25 18:17 05/23/25 18:17 Labs: Lab Results 05/23/25 05/23/25 Range/Units 18:17 20:10 WBC 8.19 (4.8-10.8) K/ul RBC 4.04 L (4.70-6.10) M/uL Hgb 11.3 L (14.0-18.0) g/dl Hct 35.2 L (42.0-52.0) % MCV 87.1 (80.0-100.0) fL MCH 28.0 (25.0-34.0) pg MCHC 32.1 (32.0-36.0) g/dL RDW Std Deviation 41.8 (36.4-46.3) fL RDW Coeff of Kristyn 13.2 (11.5-14.5) % Plt Count 241 (130-400) K/uL MPV 9.7 (9.4-12.4) fL Immature Gran % (Auto) 0.5 % Neut % (Auto) 62.7 % Lymph % (Auto) 24.4 % [place] % (Auto) 8.4 % Eos % (Auto) 3.1 % Baso % (Auto) 0.9 % Neut # (Auto) 5.14 (1.40-6.50) K/uL Lymph # (Auto) 2.00 (1.20-3.40) K/uL [place] # (Auto) 0.69 H (0.11-0.59) K/uL Eos # (Auto) 0.25 (0.00-0.50) K/uL Baso # (Auto) 0.07 (0.00-0.20) K/uL Immature Gran # (Auto) 0.04 (0.01-0.20) K/uL PT 10.6 (9.0-12.0) Seconds INR 1.0 (0.9-1.1) APTT 26 (21-31) Seconds PTT Ratio 1.0 Sodium 139 (136-145) mmol/L Potassium 3.5 (3.5-5.1) mmol/L Chloride 106 (98-107) mmol/L Carbon Dioxide 24 (21-32) mmol/L Anion Gap 9 (3-11) BUN 22 (6-23) mg/dl Creatinine 1.30 (0.6-1.4) mg/dl Est Cr Clr Drug Dosing 39.0 ml/min eGFR 53.84 BUN/Creatinine Ratio 16.9 (10-20) Glucose 106 H (70-99(Fasting)) mg/dl Calcium 8.6 (8.6-10.3) mg/dl Troponin I High Sens 14.4 12.5 (0-20) pg/ml Lipase 14 (11-82) U/L Imaging Data Chest x-ray: Radiologist's impression: Chest X-Ray 05/23/25 18:07 Chest radiograph, one view History: Chest pain Comparison: None Findings: Single AP view of the chest performed. No focal consolidation or pleural effusion. No pneumothorax. The cardiomediastinal silhouette is within normal limits. Normal pulmonary vascularity. No evidence for lymphadenopathy. No visualized bony or soft tissue abnormality. Impression: Normal chest radiograph Electronically signed by Bharathi Rivera 05-23-2025 6:31 PM ECG Data Attestation: I personally reviewed and interpreted this ECG as follows: Indication: chest pain Rate (beats per minute): 66 Rhythm: normal sinus Findings: + RBBB; no ST depression, no ST elevation or no prolonged QT Additional Comments: AL 176 QRS 122 QTc 431. [facility] Narrative 1806: The patient was evaluated in room C5. A complete history and physical exam was performed Cardiac monitoring: An order was placed for continuous cardiac monitoring. The monitor shows a rate of 70 with sinus rhythm interpreted by me 1930: Vital signs stable. Labs and imaging are unremarkable. Patient will be admitted for chest pain rule out ACS. Impression & Plan Chest pain Discharge Plan Visit Data Chief Complaint: Chest Pain Stated Complaint: CHEST PAIN ED Provider: Phil Wolfe Discharge Problem: Chest pain Patient Disposition: Being Evaluated by Hospitalist Condition: Fair Forms Stand Alone Forms: My [facility] [employer] Prescriptions Prescriptions: No Action peg 3350-electrolytes [GaviLyte-G] 236-22.74-6.74 -5.86 gram recon soln 240 ml PO Q10M Qty: 4000 0RF Rx Instructions: until fecal effluent is clear losartan 50 mg Tablet 50 mg PO QAM amlodipine 10 mg Tablet 5 mg PO QAM lidocaine [Lidoderm] 5 % adhesive patch,medicated 1 patch TOP DAILY Qty: 30 0RF Rx Instructions: leave on most painful area for 12 hrs omeprazole 20 mg Capsule,Delayed Release(Dr/Ec) 20 mg PO DAILY metoprolol succinate 25 mg Tablet Extended Release 24 Hr 25 mg PO DAILY Referrals Referrals: [facility],Hospital [Primary Care Provider] -
[2025-05-23] MEDS ORDERED: ONDANSETRON INJ 2 MG/ML 2 ML VIAL IV PRN (21:51)
[2025-05-23] MEDS ORDERED: DOCUSATE SODIUM 100 MG CAP PO PRN (21:51)
[2025-05-23 22:21] LABS: Magnesium 2.1 mg/dl (1.7-2.4)
[2025-05-23] MEDS: REMOVE LIDODERM PATCH SCH (22:22)
[2025-05-23] MEDS: ACETAMINOPHEN 325 MG TAB PO PRN (22:29)
[2025-05-24] MEDS: ASPIRIN 81 MG ECTAB PO SCH (07:37)
[2025-05-24] MEDS: LIDOCAINE 5% 1 PATCH TD SCH (07:40)
[2025-05-24 08:00] LABS: Hematocrit (blood only) 33.5 % (42.0-52.0); Hemoglobin 10.7 g/dl (14.0-18.0); Mean Corpuscular Hemoglobin 27.3 pg (25.0-34.0); Mean Corpuscular Volume 85.5 fL (80.0-100.0); Platelet Count 214 K/uL (130-400); RDW Standard Deviation 40.2 fL (36.4-46.3); Red Blood Count 3.92 M/uL (4.70-6.10); White Blood Count 6.86 K/ul (4.8-10.8)
[2025-05-24 08:23] LABS: Anion Gap 6.0 (3-11); Blood Urea Nitrogen 21.0 mg/dl (6-23); Calcium 8.3 mg/dl (8.6-10.3); Carbon Dioxide 26.0 mmol/L (21-32); Chloride 108.0 mmol/L (98-107); Cholesterol 105.0 mg/dl (0-200); Creatinine Clr Calc Pharmacy 42.6 ml/min; Glucose 87.0 mg/dl (70-99(Fasting)); HDL Cholesterol 32.0 mg/dl; Potassium 4.2 mmol/L (3.5-5.1); Sodium 140.0 mmol/L (136-145); Triglycerides 57.0 mg/dl (0-150)
[2025-05-24 08:32] LABS: Hemoglobin A1C 5.9 % (4.5-5.6)
[2025-05-24] MEDS ORDERED: ENOXAPARIN INJ 40 MG/0.4 ML SYR SQ SCH (09:00)
[2025-05-24] MEDS: LOSARTAN POTASSIUM 50 MG TAB PO SCH (11:53)
[2025-05-24] MEDS: REGADENOSON 0.4 MG/5 ML SYR IV ONE (11:53)
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
--- NOTE | 2025-05-24 13:17 | Myocardial Perfusion Study ---
Date of Service May 24, 2025 Myocardial Perfusion Study [facility] Myocardial Perfusion Study Report ONE DAY NUCLEAR MEDICINE LEXISCAN TECHNETIUM 99M MYOCARDIAL PERFUSION SCAN Indication: Chest pain, abnormal coronary artery calcium score. Baseline ECG: Normal sinus rhythm, Ventricular rate 75. Right bundle branch block. Stress ECG: No Lexiscan induced ST changes. No arrhythmias. HR eduardo from 69 to 88 representing 65% MPHR. Blood pressure eduardo from 115/58 up to 151/70. Technique: For the stress portion of the study 33 mCi of Technetium 99m Cardiolite IV was injected at 1035 on 05/24. 30 minutes following the injection, imaging of the heart was performed in multiple projections. For the rest portion of the study, 10.6 mCi of Technetium 99m Cardiolite was injected IV at 0845. One hour following the injection, imaging of the heart was performed in the same projections. Findings: Rotating raw images were reviewed in detail. Had considerable gut uptake impacting the inferior and lateral borders of the heart. Also with apparent diaphragmatic attenuation. No significant extracardiac pathologic uptake. Short axis, vertical long axis and horizontal long axis images were reviewed in detail. No visual TID. Severe fixed perfusion defect involving true apex. M oderate size, moderate intensity reversible perfusion defect involving apical back to mid segments. Normal LV size. EDV 74 ml. Calculated EF 39%. Apical akinesis. SUMMARY: 1. Technically limited study due to significant gut uptake impacting inferior and lateral borders of the heart. 2. Abnormal Lexiscan SPECT with fixed true apex perfusion defect and moderate apical back to mid segments reversible perfusion defect. Findings consistent with LAD infarct with at least moderate amount of trini-infarct ischemia. 3. Normal LV size and function. LVEF 39% with apical akinesis. 4. Non-diagnostic stress ECG due to inability to reach target HR with Lexiscan. [facility] Myocardial perfusion code Procedure Code Procedure 1: Myocardial Perfusion Codes: 32780 Cardiovascular Stress Test, multiple Procedure 2: Myocardial Perfusion Codes: 05410 Cardiovascular Stress Test, interpretation and report
--- NOTE | 2025-05-24 14:58 | Pre Anesthesia Assessment ---
Date of Service May 24, 2025 Pre Sedation Assessment Vital Signs Temp Pulse Pulse Pulse Resp BP BP 05/24/25 14:46 74 14 121/64 05/24/25 12:59 66 05/24/25 10:15 05/24/25 08:01 97.9 F 72 18 05/24/25 05:48 69 05/24/25 03:48 97.9 F 66 18 05/23/25 21:54 62 05/23/25 21:43 05/23/25 21:43 97.3 F L 70 18 160/65 H 05/23/25 21:03 78 20 05/23/25 20:33 69 13 145/78 H 05/23/25 20:02 64 19 142/66 H 05/23/25 19:30 70 17 119/71 05/23/25 19:00 70 19 109/51 L 05/23/25 18:21 67 05/23/25 18:20 70 17 05/23/25 18:01 97.9 F 83 20 108/69 BP Pulse Ox O2 Del Method 05/24/25 14:46 95 Room Air 05/24/25 12:59 05/24/25 10:15 Room Air 05/24/25 08:01 150/71 H 97 Room Air 05/24/25 05:48 05/24/25 03:48 134/67 97 Room Air 05/23/25 21:54 05/23/25 21:43 Room Air 05/23/25 21:43 99 Room Air 05/23/25 21:03 99 Room Air 05/23/25 20:33 98 Room Air 05/23/25 20:02 100 Room Air 05/23/25 19:30 100 Room Air 05/23/25 19:00 98 Room Air 05/23/25 18:21 05/23/25 18:20 123/90 95 Room Air 05/23/25 18:01 99 Room Air Cardiovascular + regular rate Respiratory + respiratory effort normal Pre-Sedation Airway Assessment Smoking Status: Former smoker Hx Sleep Apnea: No Hx Difficult Intubation: No Short, Thick Neck: No Thyromental Distance: > or= 3.5 Finger Breadths Oral Cavity: + Dentures Mallampati Class: III ASA: ASA3 NPO Status Date of Last Intake of Fluids: 05/24/25 Time of Last Intake of Fluids: 08:00 Date of Last Intake of Solid Food: 05/24/25 Time of Last Intake of Solid Foods: 08:00 Procedure Planning Contraindications for Sedation: none Current Medications Reviewed: Yes Notes The planned sedation has been discussed with the patient. Informed Consent was obtained. I have identified the patient, determined the appropriateness of sedation and have assessed the patient immediately prior to the procedure. All medicine(s) and interventions are by my order.
[2025-05-24] MEDS: NITROGLYCERIN/D5W 100MCG/ML 20ML SYR ONE (15:40)
[2025-05-24] MEDS: HEPARIN (PORCINE) 1000 UNIT/ML 10 ML (CATH LAB USE ONLY) ONE (16:01)
[2025-05-24] MEDS: MIDAZOLAM HCL 1 MG/ML 2ML VIAL ONE (16:02)
[2025-05-24] MEDS: OPTIRAY 350 ONE (16:02)
--- NOTE | 2025-05-24 16:23 | Post Anesthesia Assessment ---
Date of Service May 24, 2025 Post Sedation Assessment Vital Signs Temp Pulse Pulse Pulse Resp BP BP 05/24/25 14:46 74 14 121/64 05/24/25 12:59 66 05/24/25 10:15 05/24/25 08:01 97.9 F 72 18 05/24/25 05:48 69 05/24/25 03:48 97.9 F 66 18 05/23/25 21:54 62 05/23/25 21:43 05/23/25 21:43 97.3 F L 70 18 160/65 H 05/23/25 21:03 78 20 05/23/25 20:33 69 13 145/78 H 05/23/25 20:02 64 19 142/66 H 05/23/25 19:30 70 17 119/71 05/23/25 19:00 70 19 109/51 L 05/23/25 18:21 67 05/23/25 18:20 70 17 05/23/25 18:01 97.9 F 83 20 108/69 BP Pulse Ox O2 Del Method 05/24/25 14:46 95 Room Air 05/24/25 12:59 05/24/25 10:15 Room Air 05/24/25 08:01 150/71 H 97 Room Air 05/24/25 05:48 05/24/25 03:48 134/67 97 Room Air 05/23/25 21:54 05/23/25 21:43 Room Air 05/23/25 21:43 99 Room Air 05/23/25 21:03 99 Room Air 05/23/25 20:33 98 Room Air 05/23/25 20:02 100 Room Air 05/23/25 19:30 100 Room Air 05/23/25 19:00 98 Room Air 05/23/25 18:21 05/23/25 18:20 123/90 95 Room Air 05/23/25 18:01 99 Room Air Recovery Score Activity: Moves 4 extremities Respiration: Deep Breath/Cough Circulation: +/-20% PreAnes Value Consciousness: Fully Awake Oxygen Saturation: O2 needed for >90% Discharge Sedation Level of Care: Fast Track Phase II
--- NOTE | 2025-05-24 16:25 | Post Operative Brief Note ---
Cardiology Brief Post Op Date of Surgery May 24, 2025 Pre & Post Diagnosis Coronary artery disease Procedure Left heart catheterization Coronary angiography Bilateral lower extremity angiography Outside Medical Sales Representative Bharathi Rodriguez MD Director Visual Isidra Estimated Blood Loss 25 Findings See Below 75% distal left main 100% mid LAD occlusion with left to left collaterals 80% mid circumflex, 75% ostial OM1 100% mid RCA with right to right and [id number] collateral 100% occluded external iliac arteries, SHIFT SUPERVISOR FILM PROCESSING, SFA arteries bilaterally. Profunda fills by foot collaterals bilaterally and gives off collaterals to popliteal Anesthesia Type RN Sedation Complications none Disposition Accompanied Patient To Recovery: No Disposition: PCU
--- NOTE | 2025-05-24 17:53 | Cardiac Catheterization ---
[facility] Data: Senior Education Specialist Cardiac Status Clinical evaluation leading to the procedure CAD Presenation: Positive Stress Test Anginal Classification: CCS III Diagnostic Physicians Name: Bharathi Rodriguez MD Closure Device Recommendations: Medical Therapy and/or Counseling Cardiac Cath Procedure Full Procedure Date May 24, 2025 Pre-Procedure Diagnosis Pre-Procedure Diagnosis: Positive Stress Test AUC Score AUC Score: 7 Post-Procedure Diagnosis Post-Procedure Diagnosis: Severe CAD and Normal Intracardiac Pressures Procedure(s) Performed Procedure(s) Performed: Coronary Angiography, Left Heart Cath and Procedure (Aortography and bilateral lower extremity angiography) Mud Boss Bharathi Rodriguez MD [employer] Company Flatbed Driver(s) Isidra Estimated Blood Loss Estimated Blood Loss: 25 Medication(s) Medication(s): Clopidogrel, Fentanyl, Heparin, Lidocaine 1%, Nicardipine, Nitroglycerin and Versed Summary of Findings Indication: Atypical chest pain, abnormal stress test Access: 6 Fr slender left radial artery Catheters: JL 3.5, JR4, pigtail, MPA, 0.35 seeker catheter Findings: LM - calcified 40% ostial, mid segment ectatic, 60 % distal stenosis. LAD -calcified, medium caliber, 30% proximal to mid disease, 100% mid segment occlusion. Late mid to distal vessel fills with brisk antegrade flow via left to left collaterals. Distal vessel wraps around apex. Circumflex -medium caliber, 50% ostial, 20-30% proximal, 5060% mid stenosis at takeoff of OM1. 90% distal stenosis after OM2. Medium OM1 with 75% ostial stenosis. RCA -dominant, small to medium caliber, calcified, 100% mid occlusion just after takeoff of acute marginal. Distal vessel with diffuse disease and fills via bridging right to right collaterals. PLB's fill retrograde via [id number] collaterals. LVEDP -10 Arterial Closure: TR band Summary: 1. Severe multivessel coronary artery disease - 40% ostial, ectatic mid segment and 60% distal left main 100% mid LAD occlusion with brisk distal flow via left to left collaterals. 50% ostial, 55% mid, 90% distal circumflex. 75% ostial medium OM1 100% mid RCA with bridging right to right and [id number]-rgont collaterals 2. Normal intracardiac filling pressure Recommendations: Presenting atypical chest symptoms unlikely cardiac in nature. He remains active without limiting anginal symptoms currently (primarily limited by claudication). With chronic, noncritical CAD would recommend initial trial of medical manageme nt. Plan to increase beta-joy and consider addition of long-acting nitrate Continued ASCVD risk factor modification If refractory angina referral to tertiary center for heart team evaluation for consideration of CABG vs. complex PCI. Hemodynamics Rest Ao:: 122/60/125 Final Ao: 155/67/109 LV: 155/10 Recommendations Recommendations: Medical Therapy and/or Counseling Radiation Exposure (mGy) 899 Contrast (mls) 120 Anesthesia Moderate 1157-9078 Procedural Complication(s) None Disposition PCU I attest to the content of the Intraoperative Record and any orders documented therein. Any exceptions are noted below. [facility] Card Cath Procedure Codes Cardiac Catheterization Procedure 1: Cardiovascular Cath Procedures: 71041 Coronaries and LHC (+/-LV) Moderate Sedation Procedure 1: Sedation/Anesthesia: 61012 Mod Sedation by the same physician;Init15 Min Child Age 5 & Up Procedure 2: Sedation/Anesthesia: 63842 Mod Sedation by the same physician; Ea [id number] Minutes PG Care Time/CCT Total # of Minutes Spent Total Time Spent with Patient: Total time spent is greater than 50% in coordination of care (as documented) at patient's floor/unit and/or counseling patient:
[2025-05-24] MEDS: METOPROLOL SUCC 50MG EXT REL TAB PO SCH (18:43)
--- NOTE | 2025-05-24 18:45 | Hospitalist Progress Note ---
Date of Service May 24, 2025 Assessment & Plan (1) Chest pain: (2) PAD (peripheral artery disease): (3) HTN (hypertension): (4) BPH (benign prostatic hyperplasia): Plan 84-year-old male with history of hypertension, peripheral arterial disease presenting with ongoing chest pain. #Suspected musculoskeletal chest pain serial troponins negative Continue lidocaine patch #Coronary artery disease / HTN Discussed with Dr Rodriguez and recommending maximum medical therapy, chest pain not suspected to be cardiac Continue ASA, amlodipine, losartan, increase metoprolol succinate to 50mg PO daily Off atorvastatin due to side effects, will discuss pravastatin with him tomorrow TTE pending #Peripheral arterial diseasepatient is following at [facility] and is planning for possible surgical intervention after he has full cardiac workup Continue aspirin, add cilostazol Will discuss restart alternative statin tomorrow prior to discharge VTE prophylaxis - Lovenox 40mg SQ daily Disposition - transferred to PCU s/p cardiac cath, if doing well overnight plan on discharge home tomorrow Admission and Anticipated Discharge Date Admission Date: May 23, 2025 Subjective Doing well s/p cardiac cath. Mild left sided chest pain but improved with lidocaine patch Physical Exam Respiratory: normal respiratory effort, lungs clear to auscultation Cardiovascular: RRR, no murmur, no edema Chest (Breasts): Additional Comments: No pain on palpation over chest wall Results & Data Results & Data Vital Signs (Past 12 Hours) Vital Signs Temp Pulse Pulse Pulse Resp BP BP 05/24/25 18:24 96 H 16 120/86 05/24/25 18:23 88 16 108/72 05/24/25 17:30 86 16 96/55 L 05/24/25 17:15 90 14 139/74 05/24/25 17:00 70 14 147/67 H 05/24/25 16:45 83 05/24/25 16:45 36.4 C L 78 16 144/59 H 05/24/25 16:30 68 18 131/65 05/24/25 16:15 78 18 153/85 H 05/24/25 14:46 74 14 121/64 05/24/25 12:59 66 05/24/25 10:15 05/24/25 08:01 36.6 C 72 18 150/71 H Pulse Ox O2 Del Method 05/24/25 18:24 Room Air 05/24/25 18:23 Room Air 10/20/25 17:30 05/24/25 17:15 94 Room Air 05/24/25 17:00 94 Room Air 05/24/25 16:45 05/24/25 16:45 94 Room Air 05/24/25 16:30 98 Room Air 05/24/25 16:15 98 Room Air 05/24/25 14:46 95 Room Air 05/24/25 12:59 05/24/25 10:15 Room Air 05/24/25 08:01 97 Room Air PG Care Time/CCT Total # of Minutes Spent Total Time Spent with Patient: Total time spent is greater than 50% in coordination of care (as documented) at patient's floor/unit and/or counseling patient: Coding Level of Care Code 75116 SUB INP/OBS CARE 2/35MIN Diagnoses Chest pain R07.9 PAD (peripheral artery disease) I73.9 HTN (hypertension) I10 BPH (benign prostatic hyperplasia) N40.0
[2025-05-24] MEDS: ENOXAPARIN INJ 40 MG/0.4 ML SYR SQ SCH (19:37)
--- NOTE | 2025-05-24 22:44 | Endovascular Procedure Note ---
[facility] Endovascular Procedure Rpt Pre & Post Diagnosis Peripheral arterial disease I identified the patient and participated in the time-out.: Yes Procedure Bilateral lower extremity angiography Surgeon Bharathi Rodriguez MD Quality Management Coordinator Isidra Estimated Blood Loss 25 Findings See Below Abdominal aorta--tortuous abdominal aorta, no aneurysm on angiography (prior ultrasound showed 5 cm AAA with intraluminal thrombus). Right lower extremity-- -Common iliacpatent -External [id number]% occluded -Internal iliacpatent and provides collaterals to profunda -CFAoccluded ProfundaReconstitutes via collaterals proximally -SYL171% occluded Left lower extremity-- -Common iliacpatent, 60% distal stenosis -External [id number]% occluded -Internal iliacpatent provides collaterals to profunda -CFAoccluded ProfundaReconstitutes via collaterals proximally -[id number]% occluded Anesthesia Type RN Sedation Radiation Exposure (mGv) Radiation (mGy): 899 Contrast Contrast: 120 Complications none Disposition Accompanied Patient To Recovery: No Disposition: PCU Description of Procedure Left radial artery access with placement of 6 Fr slender sheath Diagnostic catheters navigated to ascending aorta for coronary angiography Pigtail catheter navigated into abdominal aorta over glide wire Aortography through pigtail. Selective angiography of bilateral common iliac arteries via 0.35 seeker catheter Catheters removed Contrast used: 120 Moderate sedation: See cath report Access closure: TR band Summary: 1. Right lower extremity --100% occluded external iliac artery, SHORT FILLER BUNCH MACHINE OPERATOR and entire length of SFA. Internal iliac provides collaterals to widely patent profunda (popliteal not visualized, previously noted to reconstitute on ultrasound). 2. Left lower extremity --60% distal common iliac. 100% occluded external iliac artery, SHORT FILLER BUNCH MACHINE OPERATOR and entire length of SFA. Internal iliac provides collaterals to widely patent profunda (popliteal not visualized, previously noted to reconstitute on ultrasound). Recommendations: Patient has complex multilevel occlusive disease extending from external iliac through the entire length of SFAs. No real endovascular options for revascularization. Patient high risk for open vascular surgery with unrevascularized complex left main/multivessel CAD. Recommend continued conservative management with structured exercise, cilostazol and ASCVD risk factor modification. I attest to the content of the Intraoperative Record and any orders documented therein. Any exceptions are noted below. Vascular Charges Angiography/Venography Procedure 1: Angiography/Venography charges: [id number] Aortography, abd + b/l iliofem LE, catheter, radiological S&I Procedure 2: Angiography/Venography charges: [id number] Select catheter plcmt, 1st order abd, pelvic, or LE branch
[2025-05-25 06:40] LABS: Hematocrit (blood only) 34.1 % (42.0-52.0); Hemoglobin 10.6 g/dl (14.0-18.0); Mean Corpuscular Hemoglobin 26.6 pg (25.0-34.0); Mean Corpuscular Volume 85.5 fL (80.0-100.0); Platelet Count 241 K/uL (130-400); RDW Standard Deviation 41.1 fL (36.4-46.3); Red Blood Count 3.99 M/uL (4.70-6.10); White Blood Count 8.01 K/ul (4.8-10.8)
[2025-05-25 07:01] LABS: Anion Gap 6.0 (3-11); Blood Urea Nitrogen 20.0 mg/dl (6-23); Calcium 8.5 mg/dl (8.6-10.3); Carbon Dioxide 25.0 mmol/L (21-32); Chloride 107.0 mmol/L (98-107); Creatinine Clr Calc Pharmacy 38.0 ml/min; Glucose 88.0 mg/dl (70-99(Fasting)); Iron 53.0 mcg/dl (35-175); Potassium 4.2 mmol/L (3.5-5.1); Sodium 138.0 mmol/L (136-145); Total Iron Binding Cap Calc 200.0 mcg/dl (250-450); Transferrin 143.0 mg/dl (200-360); Transferrin (FE) Percent Satur 27.0 % (20-50)
[2025-05-25 07:03] VITALS: RESP 19
[2025-05-25 07:20] LABS: Ferritin 372.2 ng/ml (8-388)
[2025-05-25 07:29] LABS: Folate (Folic Acid),Ser orPlas 14.05 ng/ml (>5.38)
[2025-05-25 07:30] LABS: Vitamin B12 403.0 pg/ml (180-914)
--- NOTE | 2025-05-25 09:58 | XCELERA ---
[id number]
[2025-05-25 10:43] VITALS: BP 119/67; TEMP 97.3; O2SAT 99
--- NOTE | 2025-05-25 11:04 | Discharge Summary ---
Discharge Summary Date of Service May 25, 2025 Principal Dx & Hospital Course #1 = Principal Diagnosis (1) Chest pain: (2) PAD (peripheral artery disease): (3) HTN (hypertension): (4) BPH (benign prostatic hyperplasia): Plan Darian Reyes is an 84 year old male admitted to [facility] from May 23 - 2024 due to chest pain. His pain was suspected to be musculoskeletal and improved with lidocaine patch which is available over the counter. Nuclear medicine stress test however was positive therefore he underwent cardiac catheterization showing severe multivessel coronary artery disease however this is not suspected to be causing his non exertional chest pain and heart attack was ruled out with serial troponins. Cardiology recommended increasing your metoprolol succinate to 50mg daily. Due to low blood pressure overnight his amlodipine and losartan were placed on hold. If his systolic blood pressure is greater than 120 he was advised to restart his losartan tomorrow however if not recommend he follows up with his primary care provider to discuss when to restart this. He was advised to only restart his amlodipine on advice of physicians when following up. Due to ongoing claudication from peripheral artery disease cardiology recommended to add Pletal (cilostazol). Recommend walking every day and trying to walk through the pain as this will help with forming collateral blood vessels to help with the pain longer term. Notes For Next Care Provider Follow up with PCP to discuss when to restart losartan and amlodipine as long as blood pressure acceptable Medication Changes From Visit Metoprolol succinate increased to help reduce risk of angina with CAD along with sinus tachycardia Amlodipine and losartan held due to hypotension - advised to restart as able (see above) Pletal added for peripheral artery disease Admission HPI Per Admitting Provider Darian Reyes is an 84-year-old male with history of hypertension, BPH, severe peripheral arterial disease in his legs bilaterally (follows with Dr. Price at [facility]) Presenting with chest pain. Patient reports that he has had intermittent left-sided chest pain ongoing for quite some time. Last night (05/23/2025) around 2200 patient developed worsening of his left-sided chest pain. It is located in the left lateral side of the chest and he describes it as sharp, stabbing pressure. Fairly constant. He has no shortness of breath or diaphoresis. The pain is not pleuritic. Patient receives most of his care at the [facility] in [place]. He is scheduled to have a nuclear stress test performed tomorrow but was instructed to come to the emergency room if his pain got worse which it did. Patient had a calcium score CT performed at the [facility]. Daughter shared the results with me. Study revealed severe coronary artery disease left circumflex with severe disease of 70 to 100% stenosis. Patient needs to have a thorough cardiac evaluation prior to being able to proceed with vascular repair of his lower extremity PAD. Patient's legs are his primary concern as he is having significant discomfort with ambulation. In the emergency room patient is afebrile, hemodynamically stable ER course: Aspirin 324 mg Discharge Exam Respiratory normal respiratory effort, lungs clear to auscultation Cardiovascular RRR, no murmur, no edema Discharge Plan Discharge Items Patient Disposition: Home - Self-Care Reason For Visit: CHEST PAIN Discharge Diagnosis: Musculoskeletal chest pain Severe multivessel coronary artery disease Peripheral artery disease Condition on Discharge: Fair Activity: Resume your previous activity Non-emergency contact: Blankmaker Call non-emergency contact if: you have any medication questions and your symptoms worsen Follow-up/Referrals: [facility] [Primary Care Provider] - Diet: Heart Healthy Diet Texture: Easy to Chew Addtl Attending Provider Instructions: You were admitted to [facility] from May 23 - 2024 due to chest pain. Your pain was suspected to be musculoskeletal and improved with lidocaine patch which is available over the counter. Nuclear medicine stress test was positive therefore you underwent cardiac catheterization showing severe multivessel coronary artery disease however do not suspect this is what was causing your chest pain and heart attack was ruled out. Cardiology recommended increasing your metoprolol succinate to 50mg daily. Due to low blood pressure overnight your amlodipine and losartan were placed on hold. If your systolic (higher number) blood pressure is greater than 120 it is ok to restart your losartan tomorrow however if not recommend you follow up with your primary care provider to discuss when to restart this. Your amlodipine has also been placed on hold and recommend following up with your primary care provider when to restart this in addition. Due to ongoing pain in your legs from peripheral artery disease cardiology recommended to add Pletal (cilostazol) to your medications. See below information sheet for more information on this medication. Recommend walking every day and trying to walk through the pain as this will help with forming collateral blood vessels to help with the pain longer term. Pending Studies at Discharge: No Stand-Alone Forms: My [facility], Smoking Cessation Medications and DC Order Prescriptions: New metoprolol succinate 50 mg tablet extended release 24 hr 50 mg PO DAILY Qty: 30 0RF cilostazol 100 mg tablet 100 mg PO BID Qty: 60 0RF Continued peg 3350-electrolytes [GaviLyte-G] 236-22.74-6.74 -5.86 gram recon soln 240 ml PO Q10M Qty: 4000 0RF Rx Instructions: until fecal effluent is clear lidocaine [Lidoderm] 5 % adhesive patch,medicated 1 patch TOP DAILY Qty: 30 0RF Rx Instructions: leave on most painful area for 12 hrs omeprazole 20 mg Capsule,Delayed Release(Dr/Ec) 20 mg PO DAILY Held losartan 50 mg Tablet 50 mg PO QAM Hold Instructions: Resume on 05/26/25. Hold unless systolic blood pressure > 120 amlodipine 10 mg Tablet 5 mg PO QAM Hold Instructions: Resume on 06/01/25. hold until follow up with your primary care provider Discontinued metoprolol succinate 25 mg Tablet Extended Release 24 Hr 25 mg PO DAILY Discharge Orders: Discharge Order (Routine); Ordered 05/25/25 Ordered By: Edison Duncan/Other Patient Handouts: Cilostazol Oral Tablet, PAD Cilostazol Admission Data Admit Date/Time: 05/24/25 12:36 Attending Provider: Edison Kay Admit Provider: Lola Drake Primary Care Provider: [facility] Other Providers: Lola Drake; Felix Heck Other Interventions: Discharge Summary Assessment (RN) Last Done: 05/25/25 11:07 Hospital Stay Data Consultations 05/23/25 19:30 ED Decision to Admit Stat 05/23/25 20:08 Consult Cardiology Routine Procedures Performed Operation Date: 05/24/25 15:00 Actual Procedures p Cineradiography w/Routine Exam - Bharathi Rodriguez MD p Cath, Left with Cors and Vent - Bharathi Rodriguez MD p Angio Extremity Bilateral - Bharathi Rodriguez MD Diagnostic Imagining Performed 05/24/25 12:35 CL Cath Imgs for PACS use only Stat Pending Results Patient Have Any Pending Studies at Discharge: No Discharge Instructions Given to Patient (Per Discharging Provider) You were admitted to [facility] from May 23 - 2024 due to chest pain. Your pain was suspected to be musculoskeletal and improved with lidocaine patch which is available over the counter. Nuclear medicine stress test was positive therefore you underwent cardiac catheterization showing severe multivessel coronary artery disease however do not suspect this is what was causing your chest pain and heart attack was ruled out. Cardiology recommended increasing your metoprolol succinate to 50mg daily. Due to low blood pressure overnight your amlodipine and losartan were placed on hold. If your systolic (higher number) blood pressure is greater than 120 it is ok to restart your losartan tomorrow however if not recommend you follow up with your primary care provider to discuss when to restart this. Your amlodipine has also been placed on hold and recommend following up with your primary care provider when to restart this in addition. Due to ongoing pain in your legs from peripheral artery disease cardiology recommended to add Pletal (cilostazol) to your medications. See below information sheet for more information on this medication. Recommend walking every day and trying to walk through the pain as this will help with forming collateral blood vessels to help with the pain longer term. Total Time Total Time Spent Total Time Spent (In Minutes): 40 Total Time Includes: Examination of the Patient, Discharge Planning, Medication Reconciliation and Communication With Other Providers Coding Level of Care Code 53262 INP/OBS DISCH >30 MIN Diagnoses Chest pain R07.9 PAD (peripheral artery disease) I73.9 HTN (hypertension) I10 BPH (benign prostatic hyperplasia) N40.0
[2025-05-25 11:10] VITALS: PULSE 59
== END 2025-05-25 11:52 | disposition home or self-care (01) | DRG 287 ==
LOC: ED 17:59 → 2N 17:59 → SUATTDRO 20:08 → 2N 21:23 → 2S 05-24 16:53
PROC: CLB.AEB (2025-05-24 15:00)
DX: Z88.6 Allergy status to analgesic agent; Z85.51 Personal history of malignant neoplasm of bladder; Z92.21 Personal history of antineoplastic chemotherapy; I70.92 Chronic total occlusion of artery of the extremities; Z87.891 Personal history of nicotine dependence; I66.02 Occlusion and stenosis of left middle cerebral artery; Z79.899 Other long term (current) drug therapy; R07.89 Other chest pain; I74.5 Embolism and thrombosis of iliac artery; I25.10 Atherosclerotic heart disease of native coronary artery without angina pectoris; I25.82 Chronic total occlusion of coronary artery; I71.40 Abdominal aortic aneurysm, without rupture, unspecified; Z88.1 Allergy status to other antibiotic agents; Z88.8 Allergy status to other drugs, medicaments and biological substances; I10 Essential (primary) hypertension; Z88.2 Allergy status to sulfonamides; N40.0 Benign prostatic hyperplasia without lower urinary tract symptoms

== ENCOUNTER 2025-06-22 11:30 | Inpatient (IN) ==
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
[2025-06-22 12:36] LABS: Hematocrit (blood only) 37.2 % (42.0-52.0); Hemoglobin 12.0 g/dL (14.0-18.0); Immature Granulocytes # (auto) 0.03 K/uL (0.01-0.20); Immature Granulocytes % (auto) 0.5 %; Mean Corpuscular Hemoglobin 27.3 pg (25.0-34.0); Mean Corpuscular Volume 84.7 fL (80.0-100.0); Platelet Count 229 K/uL (130-400); RDW Standard Deviation 43.1 fL (36.4-46.3); Red Blood Count 4.39 M/uL (4.70-6.10); White Blood Count 6.52 K/ul (4.8-10.8)
--- NOTE | 2025-06-22 12:47 | XRay Report ---
XR chest 1V portable HISTORY: 84 years-old Male weakness COMPARISON: 05/23/2025 TECHNIQUE: AP view of the chest FINDINGS: Cardiomediastinal and hilar silhouettes are unchanged. Tortuosity and atherosclerosis of the aorta. N o pneumothorax, pleural effusion, airspace consolidation or pulmonary edema. Degenerative changes of the shoulders and spine. IMPRESSION: No acute process. ACT 112: Negative or not required by law. The above report was generated using voice recognition software. It may contain grammatical, syntax o r spelling errors. Electronically signed by: Marin Cairas M.D. 06/22/2025 12:45 PM
[2025-06-22 12:52] LABS: Alanine Aminotransferase 4 U/L (7-52); Albumin Globulin Ratio 1.1 (0.9-2); Albumin Level 3.6 gm/dl (3.4-5.0); Alkaline Phosphatase 67 U/L (34-104); Anion Gap 9 (3-11); Bilirubin,Total 0.6 mg/dl (0.2-1.0); Blood Urea Nitrogen 24 mg/dl (6-23); Calcium 9.0 mg/dl (8.6-10.3); Carbon Dioxide 25 mmol/L (21-32); Chloride 104 mmol/L (98-107); Globulin 3.2 gm/dl (2.5-4.0); Glucose 127 mg/dl (70-99(Fasting)); Magnesium 2.1 mg/dl (1.7-2.4); Potassium 4.1 mmol/L (3.5-5.1); Sodium 138 mmol/L (136-145); Total Protein 6.8 gm/dl (6.0-8.3)
--- NOTE | 2025-06-22 12:59 | CT Scan Report ---
CT SCAN OF THE BRAIN WITHOUT IV CONTRAST CLINICAL HISTORY: Fall. Right-sided weakness. COMPARISON STUDY: No priors. TECHNIQUE: Unenhanced CT scan of the brain is performed from the vertex to the skull base. Images are reviewed in the axial, sagittal, coronal planes. A dose lowering technique was utilized adhering to the principles of ALARA. CT DOSE: 625.8 mGy.cm FINDINGS: Brain parenchyma: There is age-related involutional change noting moderate confluent subcortical and periventricular microangiopathic disease. There is no hemorrhage, mass effect, or evidence of acute t erritorial ischemia by CT criteria. Rosas-white matter differentiation is preserved. No extra-axial fl uid collection is seen. Ventricles, sulci, cisterns: Prominent secondary to involutional change. Intracranial vasculature: There is atherosclerotic calcification of the cavernous carotid and vertebr al arteries. Calvarium: Unremarkable. Sinuses and mastoids: There is mild mucosal thickening within the frontal and ethmoid sinuses. The ma stoid air cells are well pneumatized. Orbits: The bony orbits are grossly intact. There are bilateral ocular lens implants. IMPRESSION: There is no hemorrhage, mass effect, or evidence of acute territorial ischemia by CT matilde norris. ACT 112: Negative or not required by law. Electronically signed by: Daniel Sanford M.D. 06/22/2025 12:58 PM
[2025-06-22 13:05] LABS: Thyroid Stimulating Hormone 1.752 uIu/ml (0.300-4.500)
[2025-06-22] MEDS: SODIUM CHLORIDE 0.9% 500 ML IV ONE (14:50)
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
[2025-06-22] MEDS: GADOBUTROL 65ML VIAL IV ONE (17:16)
--- NOTE | 2025-06-22 17:42 | Magnetic Resonance Report ---
MRI of the brain performed with and without IV contrast History: Limb weakness Comparison: No prior Technique: Multiplanar T1 weighted, axial T2/FLAIR, and susceptibility images were obtained without intravenous contrast. Following intravenous gadolinium based contrast administration, axial T2 weighted, diffusion, and T1-weighted images were obtained. Findings: No evidence for intracranial mass lesion, mass-effect, midline shift, or abnormal extra-axial fluid collection. Moderate cerebral atrophy. The orbits are grossly unremarkable. The ventricles and sulci are within normal limits for age. A 13 mm area of the left white matter tract of the posterior limb internal capsule demonstrates high signal on DWI and T2/FLAIR, without low ADC signal, consistent with facilitated effusion. Normal intravascular flow voids. Impression: No evidence for acute infarct. A 13 mm area of high DWI signal, without abnormal ADC signal, suggesting facility diffusion, is consistent with a late acute or subacute infarct. Electronically signed by Bharathi Rivera 06-22-2025 5:42 PM
[2025-06-22] MEDS ORDERED: MELATONIN 3 MG TAB PO PRN (17:59)
[2025-06-22] MEDS ORDERED: ONDANSETRON INJ 2 MG/ML 2 ML VIAL IV PRN (17:59)
[2025-06-22] MEDS ORDERED: POLYETHYLENE (MIRALAX) 17 GM PACK PO PRN (17:59)
[2025-06-22] MEDS: LACTATED RINGER'S 1,000 ML IV SCH (18:47)
--- NOTE | 2025-06-22 19:00 | Billing Data ---
Date of Service June 22, 2025 Coding Level of Care Code 81242 INT INP/OBS CARE
[2025-06-22] MEDS: ENOXAPARIN INJ 40 MG/0.4 ML SYR SQ SCH (20:29)
[2025-06-22] MEDS: CLOPIDOGREL BISULFATE 75 MG TAB PO ONE (20:30)
[2025-06-22 23:07] LABS: Appearance Urine Clear (Clear); Bacteria Urine Automated None Seen (None Seen); Cast Urine Automated 0-2 /lpf (0-2); Epithelial Cell Urine Auto 0-2 /hpf (0-2); Glucose Urine UA Negative (Negative); RBC Urine Automated 0-2 /hpf (0-2)
--- NOTE | 2025-06-23 06:01 | Electrocardiogram Report ---
Test Reason : Blood Pressure : */* mmHG Vent. Rate : 89 BPM Atrial Rate : 89 BPM P-R Int : 166 ms QRS Dur : 116 ms QT Int : 372 ms P-R-T Axes : 19 76 42 degrees QTcB Int : 452 ms Normal sinus rhythm Right bundle branch block Abnormal ECG When compared with ECG of 23-May-2025 18:09, QRS axis Shifted right Criteria for Inferior infarct are no longer Present Confirmed by Erik Hayward ([id number]) on 06/23/2025 6:01:46 AM Referred By: Confirmed By: Erik Hayward
[2025-06-23 06:33] LABS: Anion Gap 8.0 (3-11); Blood Urea Nitrogen 20.0 mg/dl (6-23); Calcium 8.7 mg/dl (8.6-10.3); Carbon Dioxide 25.0 mmol/L (21-32); Chloride 105.0 mmol/L (98-107); Creatinine Clr Calc Pharmacy 38.8 ml/min; Glucose 96.0 mg/dl (70-99(Fasting)); Potassium 3.9 mmol/L (3.5-5.1); Sodium 138.0 mmol/L (136-145)
[2025-06-23] MEDS: ATORVASTATIN 40 MG TAB PO SCH (07:44)
[2025-06-23] MEDS: CLOPIDOGREL BISULFATE 75 MG TAB PO SCH (07:44)
[2025-06-23] MEDS: ASPIRIN 81 MG ECTAB PO SCH (07:45)
[2025-06-23] MEDS: FAMOTIDINE 20 MG TAB PO SCH (08:13)
[2025-06-23] MEDS: OPTIRAY 320 125ml IV ONE (11:31)
--- NOTE | 2025-06-23 12:10 | CT Scan Report ---
CT angio neck with con CLINICAL HISTORY: 84 years-old Male with subacute stroke. Subacute stroke like symptoms COMPARISON STUDY: Brain MRI 06/22/2025 TECHNIQUE: Following the IV administration of 112 mL of Optiray, CT angiogram of the neck was perform ed from the aortic arch to the skull base. Images are reviewed in the axial, sagittal, and coronal pl anes. 3-D MIPS images are created and assessed. IV contrast was administered without complication. Al l measurements were calculated based on NASCET criteria. A dose lowering technique was utilized adhe ring to the principles of ALARA. CT DOSE: 388.78 mGy.cm FINDINGS: There is atherosclerosis of the thoracic aorta arch. Dilation of the aortic isthmus measures 3.6 cm t ransversely on image 36 series 4. There is patency of the innominate and imaged subclavian arteries. There is patency of the common carotid arteries with atherosclerosis. Atherosclerotic plaque of the b ilateral carotid bulbs causes stenosis up to 50% bilaterally. Additional stenoses of the petrous segm ents measures up to 60% on the left, image 317 series 4. Stenosis in the cavernous segment right ICA measures up to 50-60%. Dominant left vertebral artery. The vertebral arteries are patent bilaterally. There is high-grade st enosis at the origin of the right vertebral artery secondary to atherosclerosis. No aneurysm, dissect ion, high-grade stenosis or arterial occlusion identified. The basilar artery demonstrates mild steno sis. Pulmonary emphysema. No pneumothorax. Unremarkable soft tissues. Multilevel degenerative changes of t he spine. IMPRESSION: 1. 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 2. Atherosclerosis of the carotid bulbs without high-grade stenosis. 3. Pulmonary emphysema. ACT 112: Negative or not required by law. The above report was generated using voice recognition software. It may contain grammatical, syntax o r spelling errors. Electronically signed by: Marin Carias M.D. 06/23/2025 12:08 PM
--- NOTE | 2025-06-23 12:43 | Hospitalist Progress Note ---
Date of Service June 23, 2025 Assessment & Plan (1) Right leg weakness: (2) Right arm weakness: (3) CAD (coronary artery disease): (4) Malignant neoplasm of bladder: (5) HTN (hypertension): Plan Patient is an 84 y/o M pmhx CAD/PAD, active bladder cancer, HTN who is admitted for right upper and lower extremity weakness x3 weeks, possibly in the setting of recent ischemic stroke as well as assistance with placement. #right-sided weakness/subacute ischemic stroke - new onset weakness of x3 weeks ; states last known normal was 06/02, states he was fine the day previously. CBC and electrolytes wnl on admission. Cr 1.33. CXR negative for acute pathology. CT head w/o acute intracranial hemorrhage or pathology - MRI brain showing evidence of late acute/subacute infarct in the left white matter tract of the posterior limb of the internal capsule - CTA neck with high-grade stenosis at the origin of the right vertebral artery ; atherosclerotic plaque of the bilateral carotid bulbs up to 50% stenosis bilaterally - following with cardiology for severe PAD/CAD and recent cardiac and endovascular catheterization showing severe multi-vessel disease. - recent lipid panel and A1c completed 05/24/25 both wnl. LDL at goal <70 - resume home atorvastatin 80mg for risk reduction/plaque stabilization - DAPT with aspirin 81mg po and clopidogrel 75mg po qAM for 3 weeks, will continue with clopidogrel only after. - per last cardiology note - holding home metoprolol and cilostazol - pressures have been controlled can continue to help - electrolytes stable this morning ; hemodynamically stable and afebrile - BMP qAM - cardiac monitoring - EKG prn for chest pain - zofran 4mg iv prn #ambulatory dysfunction - per patient's daughter, recently evaluated by home health nurse, PT, OT who all reported that he is no longer safe independently at home and may need long- term care vs rehab placement - previously lived independently at home, uses walker for assistance however new onset weakness causing difficulty with ambulation and frequent falling at home - PT/OT eval and treat - appreciate their assistance. dvt: lovenox 40mg q24h dispo: med/tele, anticipate discharge for rehab. Admission and Anticipated Discharge Date Admission Date: June 22, 2025 Supervising Physician Co-Signing Physician Notes I personally examined the patient and verified all bullard points of history and exam, discussed case, and agree with decision making with Dr Morales No new physical complaints. Awaiting PT/OT whenever I saw him. Vitals noted, in general he is awake and alert, no new changes noted neurologically. Breathing unlabored no accessory muscle use good effort. Skin without rashes pallor or icterus. Neuro without focal deficits. Subacute strokeappears to be intracranial atherosclerosis (in the setting of a gentleman with known longstanding diffuse atherosclerotic diseaseboth coronary and peripheral arterial disease), image carotids for completenessbut almost certainly all small vessel diseasePT/OT, anticipate rehab, secondary risk reduction (resumed atorvastatin, dual antiplatelets for 3 weeks and then Plavix alone. for rehab once bed available DVT prophylaxisLovenox otherwise as above Subjective Seen and examined at bedside. Alert, awake, no acute distress. Resting in reasonable level of comfort in bed. Slightly disagreeable this morning as compared to yesterday, however was oriented and engaging in meaningful conversation with me. Denies chest pain, SOB, dizziness. Review of Systems Review of Systems: as per hpi Physical Exam Physical Exam: Constitutional: well-appearing, no acute distress CV: regular rate and rhythm, no murmur appreciated, extremities well-perfused, no LE edema Resp: CTABL, no wheezes/rales/rhonchi appreciated, no increased work of breathing GI: nondistended, normal to appearance MSK: no gross deformities appreciated Skin: warm, dry, no rash appreciated Neuro: alert, oriented. RLE 4/5 strength. RUE 3/5 strength. LUE & LLE 5/5 strength. Sensation intact throughout. CN II-XII intact. Unchanged from admission neuro exam. Results & Data Results & Data Vital Signs (Past 12 Hours) Vital Signs Temp Pulse Pulse Resp BP BP Pulse Ox 06/23/25 10:32 36.6 C 92 H 19 137/73 95 06/23/25 08:00 89 06/23/25 07:10 36.7 C 81 18 94/61 L 93 06/23/25 02:56 36.9 C 76 18 125/67 95 O2 Del Method 06/23/25 10:32 Room Air 06/23/25 08:00 06/23/25 07:10 Room Air 06/23/25 02:56 Room Air (3) CAD (coronary artery disease) Associated angina: unspecified whether angina present Coronary Disease- Associated Artery/Lesion type: ramona artery [place] vs. transplanted heart: ramona heart Qualified Code(s): I25.10 - Atherosclerotic heart disease of ramona coronary artery without angina pectoris
--- NOTE | 2025-06-23 18:09 | Billing Data ---
Date of Service June 23, 2025 Coding Level of Care Code 13344 SUB INP/OBS CARE
[2025-06-24] MEDS: ATORVASTATIN 40 MG TAB PO SCH (09:27)
--- NOTE | 2025-06-24 10:43 | Hospitalist Progress Note ---
Date of Service June 24, 2025 Assessment & Plan (1) Right leg weakness: (2) Right arm weakness: (3) CAD (coronary artery disease): (4) Malignant neoplasm of bladder: (5) HTN (hypertension): Plan Patient is an 84 y/o M pmhx CAD/PAD, active bladder cancer, HTN who is admitted for right upper and lower extremity weakness x3 weeks, possibly in the setting of recent ischemic stroke as well as assistance with placement. #subacute ischemic stroke - Patient presents with new onset weakness of x3 weeks ; states last known normal was 06/02, states he was fine the day previously. CBC and electrolytes wnl on admission. Cr 1.33. CXR negative for acute pathology. CT head w/o acute intracranial hemorrhage or pathology - MRI brain showing evidence of late acute/subacute infarct in the left white matter tract of the posterior limb of the internal capsule - CTA neck with high-grade stenosis at the origin of the right vertebral artery ; atherosclerotic plaque of the bilateral carotid bulbs up to 50% stenosis bilaterally - following with cardiology for severe PAD/CAD and recent cardiac and endovascular catheterization showing severe multi-vessel disease. - recent lipid panel and A1c completed 05/24/25 both wnl. LDL at goal <70 - resume home atorvastatin 80mg for risk reduction/plaque stabilization - DAPT with aspirin 81mg po and clopidogrel 75mg po qAM for 3 weeks, will continue with clopidogrel only after. - per last cardiology note - holding home metoprolol and cilostazol - pressures have been controlled can continue to help - electrolytes stable this morning ; hemodynamically stable and afebrile - BMP qAM - cardiac monitoring - EKG prn for chest pain - zofran 4mg iv prn #ambulatory dysfunction - per patient's daughter, recently evaluated by home health nurse, PT, OT who all reported that he is no longer safe independently at home and may need long- term care vs rehab placement - previously lived independently at home, uses walker for assistance however new onset weakness causing difficulty with ambulation and frequent falling at home - PT/OT eval and treat - appreciate their assistance. dvt: lovenox 40mg q24h dispo: med/tele, anticipate discharge for rehab. Admission and Anticipated Discharge Date Admission Date: June 22, 2025 Subjective patient seen and examined,said he still feels very weak Review of Systems Review of Systems: All systems reviewed are negative, apart from the ones contained in the history. Physical Exam Physical Exam: The patient is awake, alert and oriented 3, well developed and well nourished, normocephalic and atraumatic, lying in bed and in no acute distress. HEENT--PERRL, EOMI, mucous membranes and oropharynx mildly dry Neck--supple. No JVD. No bruits. Thyroid normal, trachea midline, no adenopathy. Heart--normal S1 and S2. No murmurs, rubs or gallops. Lungs--clear bilaterally, no respiratory distress, no accessory muscle use. Abdomen--normal bowel sounds and soft. Extremities--no cyanosis or clubbing. No edema. Dermatologic--normal skin turgor, normal color, no abnormal lymph nodes, no rash. Neurologic--cranial nerves II through XII grossly intact. Rheumatologic--normal range of motion. Psychiatric--normal affect. Results & Data Results & Data Vital Signs (Past 12 Hours) Vital Signs Temp Pulse Pulse Resp BP Pulse Ox O2 Del Method 06/24/25 07:40 82 06/24/25 07:06 97.7 F 78 19 146/67 H 97 Room Air 06/24/25 03:04 97.7 F 82 17 145/71 H 96 Room Air 06/24/25 00:01 79 06/23/25 23:16 98.4 F 94 H 17 159/79 H 98 Room Air PG Care Time/CCT Total # of Minutes Spent Total Time Spent with Patient: Total time spent is greater than 50% in coordination of care (as documented) at patient's floor/unit and/or counseling patient: Coding Level of Care Code 30922 SUB INP/OBS CARE 2/35MIN Diagnoses Right leg weakness R29.898 Right arm weakness R29.898 CAD (coronary artery disease) I25.10 Associated angina: unspecified whether angina present Coronary Disease-Associated Artery/Lesion type: [place]ot artery [place] vs. transplanted heart: wiyot heart Malignant neoplasm of bladder C67.9 HTN (hypertension) I10 Time Spent (min) 35 (3) CAD (coronary artery disease) Associated angina: unspecified whether angina present Coronary Disease- Associated Artery/Lesion type: [place]ot artery [place] vs. transplanted heart: wiyot heart Qualified Code(s): I25.10 - Atherosclerotic heart disease of [place] coronary artery without angina pectoris
[2025-06-25 04:52] LABS: Hematocrit (blood only) 33.8 % (42.0-52.0); Hemoglobin 10.8 g/dL (14.0-18.0); Mean Corpuscular Hemoglobin 26.3 pg (25.0-34.0); Mean Corpuscular Volume 82.2 fL (80.0-100.0); Platelet Count 201 K/uL (130-400); RDW Standard Deviation 42.5 fL (36.4-46.3); Red Blood Count 4.11 M/uL (4.70-6.10); White Blood Count 5.84 K/ul (4.8-10.8)
[2025-06-25 05:09] LABS: Anion Gap 6.0 (3-11); Blood Urea Nitrogen 20.0 mg/dl (6-23); Calcium 8.4 mg/dl (8.6-10.3); Carbon Dioxide 24.0 mmol/L (21-32); Chloride 106.0 mmol/L (98-107); Creatinine Clr Calc Pharmacy 44.0 ml/min; Glucose 105.0 mg/dl (70-99(Fasting)); Potassium 3.9 mmol/L (3.5-5.1); Sodium 136.0 mmol/L (136-145)
--- NOTE | 2025-06-25 09:40 | Hospitalist Progress Note ---
Date of Service June 25, 2025 Assessment & Plan (1) Right leg weakness: (2) Right arm weakness: (3) CAD (coronary artery disease): (4) Malignant neoplasm of bladder: (5) HTN (hypertension): Plan Patient is an 84 y/o M pmhx CAD/PAD, active bladder cancer, HTN who is admitted for right upper and lower extremity weakness x3 weeks, possibly in the setting of recent ischemic stroke as well as assistance with placement. #subacute ischemic stroke - Patient presents with new onset weakness of x3 weeks ; states last known normal was 06/02, states he was fine the day previously. CBC and electrolytes wnl on admission. Cr 1.33. CXR negative for acute pathology. CT head w/o acute intracranial hemorrhage or pathology - MRI brain showing evidence of late acute/subacute infarct in the left white matter tract of the posterior limb of the internal capsule - CTA neck with high-grade stenosis at the origin of the right vertebral artery ; atherosclerotic plaque of the bilateral carotid bulbs up to 50% stenosis bilaterally - following with cardiology for severe PAD/CAD and recent cardiac and endovascular catheterization showing severe multi-vessel disease. - recent lipid panel and A1c completed 05/24/25 both wnl. LDL at goal <70 - resume home atorvastatin 80mg for risk reduction/plaque stabilization - DAPT with aspirin 81mg po and clopidogrel 75mg po qAM for 3 weeks, will continue with clopidogrel only after. - per last cardiology note - holding home metoprolol and cilostazol - pressures have been controlled can continue to help -PT/OT on board -Has been accepted at [facility]hab pending insurance auth #ambulatory dysfunction - per patient's daughter, recently evaluated by home health nurse, PT, OT who all reported that he is no longer safe independently at home and may need long- term care vs rehab placement - previously lived independently at home, uses walker for assistance however new onset weakness causing difficulty with ambulation and frequent falling at home - PT/OT on board. dvt: lovenox 40mg q24h dispo: has been accepted at [facility], pending auth Admission and Anticipated Discharge Date Admission Date: June 22, 2025 Subjective patient seen and examined,said he still feels very weak, happy to go to rehab Review of Systems Review of Systems: All systems reviewed are negative, apart from the ones contained in the history. Physical Exam Physical Exam: The patient is awake, alert and oriented 3, well developed and well nourished, normocephalic and atraumatic, lying in bed and in no acute distress. HEENT--PERRL, EOMI, mucous membranes and oropharynx mildly dry Neck--supple. No JVD. No bruits. Thyroid normal, trachea midline, no adenopathy. Heart--normal S1 and S2. No murmurs, rubs or gallops. Lungs--clear bilaterally, no respiratory distress, no accessory muscle use. Abdomen--normal bowel sounds and soft. Extremities--no cyanosis or clubbing. No edema. Dermatologic--normal skin turgor, normal color, no abnormal lymph nodes, no rash. Neurologic--cranial nerves II through XII grossly intact. Rheumatologic--normal range of motion. Psychiatric--normal affect. Results & Data Results & Data Vital Signs (Past 12 Hours) Vital Signs Temp Pulse Pulse Resp BP Pulse Ox O2 Del Method 06/25/25 07:21 78 06/25/25 07:17 97.9 F 79 17 116/77 95 Room Air 06/25/25 03:05 98.2 F 85 18 118/69 93 Room Air 06/24/25 22:47 98.8 F 83 18 151/79 H 97 Room Air 06/24/25 22:24 90 PG Care Time/CCT Total # of Minutes Spent Total Time Spent with Patient: Total time spent is greater than 50% in coordination of care (as documented) at patient's floor/unit and/or counseling patient: Coding Level of Care Code 63961 SUB INP/OBS CARE 2/35MIN Diagnoses Right leg weakness R29.898 Right arm weakness R29.898 CAD (coronary artery disease) I25.10 Associated angina: unspecified whether angina present Coronary Disease-Associated Artery/Lesion type: [place] artery [place] vs. transplanted heart: [place] heart Malignant neoplasm of bladder C67.9 HTN (hypertension) I10 Time Spent (min) 35 (3) CAD (coronary artery disease) Associated angina: unspecified whether angina present Coronary Disease- Associated Artery/Lesion type: [place] artery [place] vs. transplanted heart: [place] heart Qualified Code(s): I25.10 - Atherosclerotic heart disease of [place] coronary artery without angina pectoris
[2025-06-25] MEDS: ACETAMINOPHEN 325 MG TAB PO PRN (15:08)
[2025-06-26 06:30] LABS: Hematocrit (blood only) 34.3 % (42.0-52.0); Hemoglobin 10.8 g/dL (14.0-18.0); Mean Corpuscular Hemoglobin 26.1 pg (25.0-34.0); Mean Corpuscular Volume 82.9 fL (80.0-100.0); Platelet Count 202 K/uL (130-400); RDW Standard Deviation 43.2 fL (36.4-46.3); Red Blood Count 4.14 M/uL (4.70-6.10); White Blood Count 4.92 K/ul (4.8-10.8)
[2025-06-26 06:56] LABS: Anion Gap 8.0 (3-11); Blood Urea Nitrogen 22.0 mg/dl (6-23); Calcium 8.3 mg/dl (8.6-10.3); Carbon Dioxide 24.0 mmol/L (21-32); Chloride 104.0 mmol/L (98-107); Creatinine Clr Calc Pharmacy 39.9 ml/min; Glucose 93.0 mg/dl (70-99(Fasting)); Potassium 4.0 mmol/L (3.5-5.1); Sodium 136.0 mmol/L (136-145)
--- NOTE | 2025-06-26 11:02 | Hospitalist Progress Note ---
Date of Service June 26, 2025 Assessment & Plan (1) Right leg weakness: (2) Right arm weakness: (3) CAD (coronary artery disease): (4) Malignant neoplasm of bladder: (5) HTN (hypertension): Plan Patient is an 84 y/o M pmhx CAD/PAD, active bladder cancer, HTN who is admitted for right upper and lower extremity weakness x3 weeks, possibly in the setting of recent ischemic stroke as well as assistance with placement. #subacute ischemic stroke - Patient presents with new onset weakness of x3 weeks ; states last known normal was 06/02, states he was fine the day previously. CBC and electrolytes wnl on admission. Cr 1.33. CXR negative for acute pathology. CT head w/o acute intracranial hemorrhage or pathology - MRI brain showing evidence of late acute/subacute infarct in the left white matter tract of the posterior limb of the internal capsule - CTA neck with high-grade stenosis at the origin of the right vertebral artery ; atherosclerotic plaque of the bilateral carotid bulbs up to 50% stenosis bilaterally - following with cardiology for severe PAD/CAD and recent cardiac and endovascular catheterization showing severe multi-vessel disease. - recent lipid panel and A1c completed 05/24/25 both wnl. LDL at goal <70 - resume home atorvastatin 80mg for risk reduction/plaque stabilization - DAPT with aspirin 81mg po and clopidogrel 75mg po qAM for 3 weeks, will continue with clopidogrel only after. - per last cardiology note - holding home metoprolol and cilostazol - pressures have been controlled can continue to help -PT/OT on board -Has been accepted at [facility] rehab pending insurance auth #ambulatory dysfunction - per patient's daughter, recently evaluated by home health nurse, PT, OT who all reported that he is no longer safe independently at home and may need long- term care vs rehab placement - previously lived independently at home, uses walker for assistance however new onset weakness causing difficulty with ambulation and frequent falling at home - PT/OT on board. dvt: lovenox 40mg q24h dispo: has been accepted at [facility], pending auth Admission and Anticipated Discharge Date Admission Date: June 22, 2025 Subjective patient seen and examined,, happy to go to rehab, awaiting auth Review of Systems Review of Systems: All systems reviewed are negative, apart from the ones contained in the history. Physical Exam Physical Exam: The patient is awake, alert and oriented 3, well developed and well nourished, normocephalic and atraumatic, lying in bed and in no acute distress. HEENT--PERRL, EOMI, mucous membranes and oropharynx mildly dry Neck--supple. No JVD. No bruits. Thyroid normal, trachea midline, no adenopathy. Heart--normal S1 and S2. No murmurs, rubs or gallops. Lungs--clear bilaterally, no respiratory distress, no accessory muscle use. Abdomen--normal bowel sounds and soft. Extremities--no cyanosis or clubbing. No edema. Dermatologic--normal skin turgor, normal color, no abnormal lymph nodes, no rash. Neurologic--cranial nerves II through XII grossly intact. Rheumatologic--normal range of motion. Psychiatric--normal affect. Results & Data Results & Data Vital Signs (Past 12 Hours) Vital Signs Temp Pulse Pulse Resp BP Pulse Ox O2 Del Method 06/26/25 07:32 95 H 06/26/25 07:28 98.8 F 93 H 18 119/65 93 Room Air 06/26/25 03:45 99.1 F 92 H 16 126/73 95 Room Air 06/25/25 23:57 98.6 F 72 16 147/76 H 96 Room Air PG Care Time/CCT Total # of Minutes Spent Total Time Spent with Patient: Total time spent is greater than 50% in coordination of care (as documented) at patient's floor/unit and/or counseling patient: Coding Level of Care Code 16616 SUB INP/OBS CARE 2/35MIN Diagnoses Right leg weakness R29.898 Right arm weakness R29.898 CAD (coronary artery disease) I25.10 Associated angina: unspecified whether angina present Coronary Disease-Associated Artery/Lesion type: [place] artery [place] vs. transplanted heart: [place] heart Malignant neoplasm of bladder C67.9 HTN (hypertension) I10 Time Spent (min) 35 (3) CAD (coronary artery disease) Associated angina: unspecified whether angina present Coronary Disease- Associated Artery/Lesion type: [place] artery [place] vs. transplanted heart: [place] heart Qualified Code(s): I25.10 - Atherosclerotic heart disease of [place] coronary artery without angina pectoris
[2025-06-26] MEDS: DICLOFENAC SOD 1% GEL 100 GM TUBE EXT SCH (23:32)
--- NOTE | 2025-06-27 09:18 | Hospitalist Progress Note ---
Date of Service June 27, 2025 Assessment & Plan (1) Right leg weakness: (2) Right arm weakness: (3) CAD (coronary artery disease): (4) Malignant neoplasm of bladder: (5) HTN (hypertension): Plan Patient is an 84 y/o M pmhx CAD/PAD, active bladder cancer, HTN who is admitted for right upper and lower extremity weakness x3 weeks, possibly in the setting of recent ischemic stroke as well as assistance with placement. #subacute ischemic stroke - Patient presents with new onset weakness of x3 weeks ; states last known normal was 06/02, states he was fine the day previously. 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 - recent lipid panel and A1c completed 05/24/25 both wnl. LDL at goal <70 - resume home atorvastatin 80mg for risk reduction/plaque stabilization - DAPT with aspirin 81mg po and clopidogrel 75mg po qAM for 3 weeks, will continue with clopidogrel only after. - per last cardiology note - holding home metoprolol and cilostazol - pressures have been controlled can continue to help -PT/OT on board -Has been accepted at [facility] pending insurance auth #ambulatory dysfunction - per patient's daughter, recently evaluated by home health nurse, PT, OT who all reported that he is no longer safe independently at home and may need long- term care vs rehab placement - previously lived independently at home, uses walker for assistance however new onset weakness causing difficulty with ambulation and frequent falling at home - PT/OT on board. dvt: lovenox 40mg q24h dispo: has been accepted at [facility], pending auth Admission and Anticipated Discharge Date Admission Date: June 22, 2025 Subjective patient seen and examined,, happy to go to rehab, awaiting auth, Tolerating diet Review of Systems Review of Systems: All systems reviewed are negative, apart from the ones contained in the history. Physical Exam Physical Exam: The patient is awake, alert and oriented 3, well developed and well nourished, normocephalic and atraumatic, lying in bed and in no acute distress. HEENT--PERRL, EOMI, mucous membranes and oropharynx mildly dry Neck--supple. No JVD. No bruits. Thyroid normal, trachea midline, no adenopathy. Heart--normal S1 and S2. No murmurs, rubs or gallops. Lungs--clear bilaterally, no respiratory distress, no accessory muscle use. Abdomen--normal bowel sounds and soft. Extremities--no cyanosis or clubbing. No edema. Dermatologic--normal skin turgor, normal color, no abnormal lymph nodes, no rash. Neurologic--cranial nerves II through XII grossly intact. Rheumatologic--normal range of motion. Psychiatric--normal affect. Results & Data Results & Data Vital Signs (Past 12 Hours) Vital Signs Temp Pulse Pulse Resp BP Pulse Ox O2 Del Method 06/27/25 07:46 98.2 F 86 18 124/67 96 Room Air 06/27/25 07:17 77 06/27/25 04:12 97.7 F 91 H 16 133/81 96 CPAP 06/26/25 22:29 98.8 F 90 16 129/67 95 Room Air PG Care Time/CCT Total # of Minutes Spent Total Time Spent with Patient: Total time spent is greater than 50% in coordination of care (as documented) at patient's floor/unit and/or counseling patient: Coding Level of Care Code 33115 SUB INP/OBS CARE 2/35MIN Diagnoses Right leg weakness R29.898 Right arm weakness R29.898 CAD (coronary artery disease) I25.10 Associated angina: unspecified whether angina present Coronary Disease-Associated Artery/Lesion type: [place] artery [place] vs. transplanted heart: [place] heart Malignant neoplasm of bladder C67.9 HTN (hypertension) I10 Time Spent (min) 35 (3) CAD (coronary artery disease) Associated angina: unspecified whether angina present Coronary Disease- Associated Artery/Lesion type: [place] artery [place] vs. transplanted heart: [place] heart Qualified Code(s): I25.10 - Atherosclerotic heart disease of [place] coronary artery without angina pectoris
--- NOTE | 2025-06-28 11:03 | Hospitalist Progress Note ---
Date of Service June 28, 2025 Assessment & Plan (1) Right leg weakness: (2) Right arm weakness: (3) CAD (coronary artery disease): (4) Malignant neoplasm of bladder: (5) HTN (hypertension): Plan Patient is an 84 y/o M pmhx CAD/PAD, active bladder cancer, HTN who is admitted for right upper and lower extremity weakness x3 weeks, possibly in the setting of recent ischemic stroke as well as assistance with placement. #subacute ischemic stroke - Patient presents with new onset weakness of x3 weeks ; states last known normal was 06/02, states he was fine the day previously. 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 - recent lipid panel and A1c completed 05/24/25 both wnl. LDL at goal <70 - resume home atorvastatin 80mg for risk reduction/plaque stabilization - DAPT with aspirin 81mg po and clopidogrel 75mg po qAM for 3 weeks, will continue with clopidogrel only after. - per last cardiology note - holding home metoprolol and cilostazol - pressures have been controlled can continue to help -PT/OT on board -Has been accepted at [facility] pending insurance auth #ambulatory dysfunction - per patient's daughter, recently evaluated by home health nurse, PT, OT who all reported that he is no longer safe independently at home and may need long- term care vs rehab placement - previously lived independently at home, uses walker for assistance however new onset weakness causing difficulty with ambulation and frequent falling at home - PT/OT on board. dvt: lovenox 40mg q24h dispo: has been accepted at [facility], pending auth Admission and Anticipated Discharge Date Admission Date: June 22, 2025 Subjective No events overnight. Pt resting comfortably in bed. Review of Systems Review of Systems: CONST: Negative for fever, body aches and chills. HENT: Negative for neck pain/stiffness, headache, congestion, sore throat, swelling. EYES: Negative for discharge/pain or vision changes. RESP: Negative for cough/hemoptysis and shortness of breath. CV: Negative chest pain, difficulty breathing, palpitations. ABD: Negative pain, nausea, vomiting. : Negative increase frequency, dysuria, blood in urine or stool. MUSC: Negative for muscle aches, edema. SKIN: Negative rash, lesions/sores. NEURO: Negative headache, dizziness, weakness. Physical Exam Physical Exam: GENERAL APPEARANCE NAD, activity normal for age, well developed/ well nourished, no cyanosis, pallor, or diaphoresis. EYES lids/conjunctiva normal. EARS/NOSE/THROAT Mucous membranes moist, nares normal, lips/teeth normal uvula midline without oral pharyngeal erythema, exudate or swelling TMs normal bilaterally. No lymphangitis/lymphedema. HEAD/NECK normocephalic atraumatic, no facial trauma, neck is supple. RESPIRATORY respiratory effort normal, speaks in full sentences, no tripod position, no accessory muscle use. Lungs clear to auscultation without rhonchi, wheezes, rales CARDIAC Regular rate and rhythm, no edema. ABDOMINAL Soft, ND/NT. No evidence of fluid wave. No pulsatile masses on exam, rebound tenderness, Abbott sign or pain over Mcburney's point. MUSCLES/EXTREMITIES No abnormal range of motion, no swelling. SKIN Warm, pink and dry. No rashes, dermatoses, petechiae or lesions. NEUROLOGICAL Speech is clear and appropriate. Normal level of consciousness. Gait and coordination are normal. 5/5 strength in all extremities. PSYCH Normal mood and affect. Judgement/competence is appropriate Results & Data Results & Data Vital Signs (Past 12 Hours) Vital Signs Temp Pulse Resp BP Pulse Ox O2 Del Method 06/28/25 07:05 36.3 C L 81 18 100/62 97 Room Air PG Care Time/CCT Total # of Minutes Spent Total Time Spent with Patient: Total time spent is greater than 50% in coordination of care (as documented) at patient's floor/unit and/or counseling patient: Coding Level of Care Code 05753 SUB INP/OBS CARE 2/35MIN Diagnoses Right leg weakness R29.898 Right arm weakness R29.898 CAD (coronary artery disease) I25.10 Associated angina: unspecified whether angina present Coronary Disease-Associated Artery/Lesion type: [place] artery [place] vs. transplanted heart: [place] heart Malignant neoplasm of bladder C67.9 HTN (hypertension) I10 (3) CAD (coronary artery disease) Associated angina: unspecified whether angina present Coronary Disease- Associated Artery/Lesion type: [place] artery [place] vs. transplanted heart: [place] heart Qualified Code(s): I25.10 - Atherosclerotic heart disease of [place] coronary artery without angina pectoris
[2025-06-29 01:54] VITALS: RESP 18
[2025-06-29 07:07] VITALS: TEMP 97.4; O2SAT 97
--- NOTE | 2025-06-29 09:26 | Discharge Summary ---
Discharge Summary Date of Service June 29, 2025 Principal Dx & Hospital Course #1 = Principal Diagnosis (1) Right leg weakness: (2) Right arm weakness: (3) CAD (coronary artery disease): (4) Malignant neoplasm of bladder: (5) HTN (hypertension): Plan Patient is an 84 y/o M pmhx CAD/PAD, active bladder cancer, HTN who is admitted for right upper and lower extremity weakness x3 weeks, possibly in the setting of recent ischemic stroke as well as assistance with placement. #subacute ischemic stroke - Patient presents with new onset weakness of x3 weeks ; states last known normal was 06/02, states he was fine the day previously. 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 - recent lipid panel and A1c completed 05/24/25 both wnl. LDL at goal <70 - resume home atorvastatin 80mg for risk reduction/plaque stabilization - DAPT with aspirin 81mg po and clopidogrel 75mg po qAM for 3 weeks, will continue with clopidogrel only after. - per last cardiology note - holding home metoprolol and cilostazol - pressures have been controlled can continue to help -PT/OT on board -[facility] pending insurance auth #ambulatory dysfunction - per patient's daughter, recently evaluated by home health nurse, PT, OT who all reported that he is no longer safe independently at home and may need long- term care vs rehab placement - previously lived independently at home, uses walker for assistance however new onset weakness causing difficulty with ambulation and frequent falling at home - PT/OT on board. dvt: lovenox 40mg q24h dispo: has [facility], pending auth Admission HPI Per Admitting Provider Darian Reyes is an 84 y/o M pmhx CAD/PAD, active bladder cancer, tobacco use who presents today for evaluation of ambulatory dysfunction and weakness. States 3 weeks ago, he woke up with right-side upper and lower extremity weakness that has not resolved. Having difficult time walking at home, states his right leg drags significantly behind his left leg. Currently lives independently and uses a walker for ambulation. He presented to the ED [facility]. He has no previous stroke hx, however does have significant CAD with recent cath showing severe multivessel disease. He was recently evaluated by home nursing, PT and OT who agreed that patient is no longer safe at home and do recommend some type of temporary vs long-term placement. Denies injury or trauma to RLE and RUE. Having frequent falls at home since weakness onset, however denies hitting his head. He does have a significant smoking history of >70 years, recently quit cold turkey about 10 months ago. Denies use of alcohol and recreational drugs. Patient's daughter is at bedside who assisted with some of the history. On arrival to ED, patient hemodynamically stable. CT head negative for acute intracranial pathology. CXR negative. CBC wnl. Electrolytes and kidney function stable. UA ordered and pending. Received 1L normal saline. Patient will be admitted for right upper and lower extremity weakness x3 weeks, possibly in the setting of recent ischemic stroke as well as assistance with placement. Discharge Exam GENERAL APPEARANCE NAD, activity normal for age, well developed/ well nourished, no cyanosis, pallor, or diaphoresis. EYES lids/conjunctiva normal. EARS/NOSE/THROAT Mucous membranes moist, nares normal, lips/teeth normal uvula midline without oral pharyngeal erythema, exudate or swelling TMs normal bilaterally. No lymphangitis/lymphedema. HEAD/NECK normocephalic atraumatic, no facial trauma, neck is supple. RESPIRATORY respiratory effort normal, speaks in full sentences, no tripod position, no accessory muscle use. Lungs clear to auscultation without rhonchi, wheezes, rales CARDIAC Regular rate and rhythm, no edema. ABDOMINAL Soft, ND/NT. No evidence of fluid wave. No pulsatile masses on exam, rebound tenderness, Abbott sign or pain over Mcburney's point. MUSCLES/EXTREMITIES No abnormal range of motion, no swelling. SKIN Warm, pink and dry. No rashes, dermatoses, petechiae or lesions. NEUROLOGICAL Speech is clear and appropriate. Normal level of consciousness. Gait and coordination are normal. 5/5 strength in all extremities. PSYCH Normal mood and affect. Judgement/competence is appropriate Discharge Plan Discharge Items Patient Disposition: Transfer Custodial Fac Reason For Visit: NEURO DEFICIT Discharge Diagnosis: sub acute stroke Condition on Discharge: Good Activity: Resume your previous activity Non-emergency contact: Primary Care Provider and Pattern Fitter Call non-emergency contact if: you have any medication questions Follow-up/Referrals: [facility] [Primary Care Provider] - Diet: Regular Addtl Attending Provider Instructions: please follow up with your regular doctors at the [facility] Pending Studies at Discharge: No Stand-Alone Forms: My [facility], Medications to Prevent Stroke Skilled Items Patient informed of condition?: Yes DNR: Yes Discharge Level of Care: Skilled Communicable Disease: No Discharge Prognosis: Stable Lines: None Urinary Catheter: No Medications and DC Order Prescriptions: New atorvastatin 40 mg Tablet 80 mg PO QAM 30 Days Qty: 60 0RF clopidogrel 75 mg Tablet 75 mg PO QAM 21 Days Qty: 21 0RF Continued aspirin 81 mg tablet 81 mg PO DAILY famotidine [Pepcid] 20 mg Tablet 20 mg PO DAILY Held cilostazol 100 mg tablet 0 mg PO BID Hold Instructions: Resume on 07/08/25. Rx Instructions: 100MG BID BUT PT STATES HE DOES NOT TAKE metoprolol succinate 50 mg tablet extended release 24 hr 0 mg PO DAILY Hold Instructions: Resume on 07/08/25. Rx Instructions: 50MG DAILY BUT PT STATES HE DOES NOT TAKE Discharge Orders: Discharge Order (Routine); Ordered 06/29/25 Ordered By: Jacob Rodriguez Admission Data Admit Date/Time: 06/22/25 16:11 Attending Provider: Jacob Rodriguez Admit Provider: Elma Morales Primary Care Provider: [facility] Other Providers: [facility]; [facility] Stay Data Consultations 06/22/25 14:06 ED Decision to Admit Stat Diagnostic Imagining Performed 06/22/25 12:11 CT head/brain wo con Stat 06/22/25 16:11 MRI Brain [MR brain wo/w con] Stat 06/23/25 10:27 CT angio neck with con Routine Pending Results Patient Have Any Pending Studies at Discharge: No Discharge Instructions Given to Patient (Per Discharging Provider) please follow up with your regular doctors at the [facility] Total Time Total Time Spent Total Time Spent (In Minutes): 50 Coding Level of Care Code 04183 INP/OBS DISCH >30 MIN Diagnoses Right leg weakness R29.898 Right arm weakness R29.898 CAD (coronary artery disease) I25.10 Associated angina: unspecified whether angina present Coronary Disease-Associated Artery/Lesion type: [place] artery [place] vs. transplanted heart: [place] heart Malignant neoplasm of bladder C67.9 HTN (hypertension) I10
[2025-06-29 11:31] VITALS: BP 127/70; PULSE 78
--- NOTE | 2025-06-29 13:03 | Electrocardiogram Report ---
Test Reason : Blood Pressure : */* mmHG Vent. Rate : 82 BPM Atrial Rate : 82 BPM P-R Int : 156 ms QRS Dur : 120 ms QT Int : 388 ms P-R-T Axes : -17 81 55 degrees QTcB Int : 453 ms Normal sinus rhythm Right bundle branch block Abnormal ECG When compared with ECG of 22-Jun-2025 11:54, No significant change was found Confirmed by Bharathi Guadarrama ([id number]) on 06/29/2025 1:02:47 PM Referred By: REFERRED SELF Confirmed By: Bharathi Guadarrama
== END 2025-06-29 12:25 | DRG 65 ==
LOC: ED 11:30 → 4W 16:11 → SUATTDRO 16:11 → 4W 17:41